=== PATIENT | male | born 1950 | race Caucasian/White ===

== ENCOUNTER 2020-07-01 21:43 | Inpatient (IN) ==
[2020-07-02] MEDS ORDERED: Acetaminophen 325 MG TABLET PO PRN (02:01)
[2020-07-02] MEDS ORDERED: Ondansetron ODT 4 MG TAB.RAPDIS SL PRN (02:01)
[2020-07-02] MEDS ORDERED: Naloxone 0.4 MG/ML INJ IVP PRN (02:01)
[2020-07-02] MEDS ORDERED: Perflutren Lipid Microsphere 1.3 ML in 0.9 % Sodium Chloride 8.7 ML IVP PRN ×2 (02:03→11:47)
[2020-07-02] MEDS ORDERED: Ipratropium/Albuterol Neb 3 ML IH PRN (02:04)
[2020-07-02] MEDS ORDERED: Dextrose Gel 15 GM/37.5 ML TUBE PO PRN ×2 (02:45)
[2020-07-02] MEDS ORDERED: *HR* Dextrose 50 % in Water (Vial) 50 ML VIAL IVP PRN (02:45)
[2020-07-02] MEDS ORDERED: D5% in Water 1,000 ML IVC PRN (02:45)
[2020-07-02] MEDS ORDERED: *HR* Metoprolol 5 MG/5 ML VIAL IVP PRN (02:48)
[2020-07-02] MEDS: *HR* HYDROcodone/Acet 5/325 mg TABLET PO PRN ×4 (03:50→23:12)
[2020-07-02] MEDS: Insulin LISPRO 300 UNITS/3 ML VIAL SUBQ SCH ×6 (03:58→19:45)
[2020-07-02] MEDS: Nicotine 21 MG PATCH.TD24 TD SCH (03:58)
[2020-07-02 05:42] LABS: Bacteria,Urine Few per hpf (None-Few); Bilirubin,Urine Negative (Negative); Blood,Urine Negative (Negative); Clarity,Urine Clear (Clear); Color,Urine Yellow (Yellow); Glucose,Urine (UA) 30 mg/dL (Normal); Hyaline Casts,Urine Few per lpf (None Seen); Ketones,Urine Trace mg/dL (Negative); Leukocyte Esterase,Urine Negative (Negative); Mucus,Urine Few per lpf (None-Few); Nitrite,Urine Negative (Negative); PH,Urine 5.5 pH Units (5.0-8.0); Protein,Urine Trace mg/dL (Neg-Trace); RBC,Urine 0-3 per hpf (0-3); Specific Gravity,Urine 1.023 (1.010-1.025); Urobilinogen,Urine Normal (Normal); WBC,Urine 0-3 per hpf (0-3)
[2020-07-02] MEDS: MethylPREDNISolone 40 MG/ML VIAL IVP SCH ×2 (05:56→17:41)
[2020-07-02 06:10] LABS: Adenovirus Not Detected (Not Detect); Coronavirus 229E Not Detected (Not Detect); Coronavirus HKU1 Not Detected (Not Detect); Coronavirus NL63 Not Detected (Not Detect); Coronavirus OC43 Not Detected (Not Detect); Human Metapneumovirus Not Detected (Not Detect); Human Rhinovirus/Enterovirus Not Detected (Not Detect); Influenza A Subtype 2009 H1 Not Detected (Not Detect); Influenza B Not Detected (Not Detect); Parainfluenza Virus 1 Not Detected (Not Detect); Parainfluenza Virus 2 Not Detected (Not Detect); Parainfluenza Virus 3 Not Detected (Not Detect); Parainfluenza Virus 4 Not Detected (Not Detect)
[2020-07-02 06:11] LABS: Bordetella Pertussis Not Detected (Not Detect); Chlamydophila pneumoniae Not Detected (Not Detect); Mycoplasma pneumoniae Not Detected (Not Detect); Respiratory Syncytial Virus Not Detected (Not Detect)
[2020-07-02] MEDS ORDERED: cefTRIAXone 1,000 MG in 0.9 % Sodium Chloride Mini Bag 100 ML IVPB SCH (09:00)
[2020-07-02] MEDS ORDERED: Apixaban 5 MG TABLET PO SCH (09:00)
[2020-07-02 09:27] LABS: INR 1.7; Prothrombin Time 19.7 Seconds (9.4-12.1)
[2020-07-02 09:32] LABS: Basophils % 0.1 %; Hematocrit 36.6 % (37.5-50.1); Hemoglobin 11.4 g/dL (12.9-16.9); Immature Granulocytes % 0.7 % (0-4); Lymphocytes # 0.8 K/mcL (0.6-4.6); Mean Corpuscular HGB Conc 31.1 g/dL (31.6-35.5); Mean Corpuscular Hemoglobin 25.9 pg (28.0-33.3); Mean Corpuscular Volume 83.2 fL (83.0-100.0); Mean Platelet Volume 9.9 fL (9.4-12.4); Monocytes # 0.2 K/mcL (0.0-1.3); Monocytes % 2.2 %; Neutrophils # 6.2 K/mcL (1.6-8.9); Platelet Count 276 K/mcL (140-400); Red Cell Distribution Width 15.5 % (11.5-14.5); White Blood Count 7.2 K/mcL (4.3-11.1)
[2020-07-02] MEDS: amLODIPine 5 MG TABLET PO SCH (09:39)
[2020-07-02] MEDS: Furosemide 40 MG/4 ML VIAL IVP SCH ×2 (09:39→19:46)
[2020-07-02 09:44] LABS: Alanine Aminotransferase 10 Units/L (7-52); Albumin 3.6 g/dL (3.5-5.7); Albumin/Globulin Ratio 1.2 (1.1-2.2); Alkaline Phosphatase 175 Units/L (34-104); Aspartate Amino Transferase 15 Units/L (13-39); BUN/Creatinine Ratio 19 (6-26); Blood Urea Nitrogen 15 mg/dL (8-23); Calcium 9.4 mg/dL (8.6-10.3); Carbon Dioxide 24 mEq/L (23-29); Chloride 97 mEq/L (98-107); Chol/HDL Ratio 2.3 (0-4.9); Cholesterol 102 mg/dL (< 200); Globulin 3.1 g/dL (2.4-3.5); Glucose 178 mg/dL (70-105); HDL Cholesterol 44 mg/dL (40-59); LDL Cholesterol,Calculated 43 mg/dL (< 100); Magnesium 1.6 mg/dL (1.6-2.6); Osmolality,Calculated 277 (280-300); Phosphorous 4.1 mg/dL (2.7-4.5); Potassium 4.7 mEq/L (3.5-5.1); Sodium 131 mEq/L (136-145); Total Protein 6.7 g/dL (6.4-8.9); Triglycerides 74 mg/dL (< 150); Troponin I < 0.03 ng/mL (< 0.04); eGFR For African Americans > 60 (> 60); eGFR For Non-African Americans > 60 (> 60)
[2020-07-02] MEDS ORDERED: Budesonide/Formoterol 160/4.5 1 PUFF INH IH SCH (10:00)
[2020-07-02] MEDS ORDERED: Isovue-370 500 ML BOTTLE IVP ONE ×2 (10:21→11:40)
[2020-07-02 10:24] LABS: VBG HCO3 26 mEq/L (21-27); VBG PCO2 50 mmHg (41-51); VBG PH 7.32 pH Units (7.32-7.42); VBG PO2 192 mmHg (25-50)
[2020-07-02] MEDS: Azithromycin 500 MG in 0.9 % Sodium Chloride 250 ML IVPB SCH (10:30)
[2020-07-02] MEDS ORDERED: cefTRIAXone 2,000 MG in 0.9 % Sodium Chloride Mini Bag 100 ML IVPB SCH (11:00)
[2020-07-02] MEDS ORDERED: cefTRIAXone 1,000 MG in 0.9 % Sodium Chloride Mini Bag 100 ML IVPB ONE (11:00)
[2020-07-02] MEDS: Ipratropium/Albuterol Neb 3 ML IH SCH ×4 (12:51→22:54)
[2020-07-02 13:14] LABS: Estimated Average Glucose 206 mg/dl; Hemoglobin A1C 8.8 %
[2020-07-02] MEDS ORDERED: Amiodarone Premix 360 MG/200 ML BAG IVC ONE (13:19)
[2020-07-02] MEDS: Fluticasone Propionate Nasal 50 MCG/SPRAY BOTTLE NS SCH (19:45)
[2020-07-02] MEDS: Amiodarone Premix 360 MG/200 ML BAG IVC SCH (19:46)
[2020-07-03] MEDS: Ipratropium/Albuterol Neb 3 ML IH SCH ×6 (03:03→23:13)
[2020-07-03 05:04] LABS: Hematocrit 33.2 % (37.5-50.1); Hemoglobin 10.2 g/dL (12.9-16.9); Immature Granulocytes % 0.5 % (0-4); Lymphocytes # 0.5 K/mcL (0.6-4.6); Lymphocytes % 8.1 %; Mean Corpuscular HGB Conc 30.7 g/dL (31.6-35.5); Mean Corpuscular Hemoglobin 26.8 pg (28.0-33.3); Mean Corpuscular Volume 87.1 fL (83.0-100.0); Mean Platelet Volume 10.7 fL (9.4-12.4); Monocytes # 0.3 K/mcL (0.0-1.3); Monocytes % 4.7 %; Neutrophils # 5.8 K/mcL (1.6-8.9); Platelet Count 235 K/mcL (140-400); Red Blood Count 3.81 M/mcL (4.19-5.50); Red Cell Distribution Width 15.9 % (11.5-14.5); Segmented Neutrophils % 86.7 %; White Blood Count 6.6 K/mcL (4.3-11.1)
[2020-07-03] MEDS: Nicotine 21 MG PATCH.TD24 TD SCH (05:20)
[2020-07-03] MEDS: MethylPREDNISolone 40 MG/ML VIAL IVP SCH (05:20)
[2020-07-03] MEDS: *HR* HYDROcodone/Acet 5/325 mg TABLET PO PRN ×3 (05:20→18:18)
[2020-07-03 05:23] LABS: BUN/Creatinine Ratio 26 (6-26); Blood Urea Nitrogen 27 mg/dL (8-23); Calcium 8.7 mg/dL (8.6-10.3); Carbon Dioxide 27 mEq/L (23-29); Chloride 96 mEq/L (98-107); Glucose 344 mg/dL (70-105); Osmolality,Calculated 287 (280-300); Potassium 5.4 mEq/L (3.5-5.1); Sodium 129 mEq/L (136-145); eGFR For African Americans > 60 (> 60); eGFR For Non-African Americans > 60 (> 60)
[2020-07-03] MEDS: Amiodarone Premix 360 MG/200 ML BAG IVC SCH ×2 (08:01→20:12)
[2020-07-03] MEDS ORDERED: cefTRIAXone 2,000 MG in 0.9 % Sodium Chloride Mini Bag 100 ML IVPB SCH (09:00)
[2020-07-03] MEDS ORDERED: Metoprolol XL (24 HR) Succ 25 MG TAB.ER.24H PO SCH (09:00)
[2020-07-03] MEDS: Insulin LISPRO 300 UNITS/3 ML VIAL SUBQ SCH ×5 (09:20→20:38)
[2020-07-03] MEDS: Insulin DETEMIR 100 UNIT/ML X5UNITS SUBQ SCH (09:20)
[2020-07-03] MEDS: amLODIPine 5 MG TABLET PO SCH (09:21)
[2020-07-03] MEDS: Azithromycin 500 MG in 0.9 % Sodium Chloride 250 ML IVPB SCH (10:17)
[2020-07-03] MEDS: Apixaban 5 MG TABLET PO SCH ×2 (11:41→20:39)
[2020-07-03] MEDS: Aspirin Enteric Coated 81 MG Tablet PO SCH (12:55)
[2020-07-03] MEDS ORDERED: Furosemide 40 MG/4 ML VIAL IVP SCH ×2 (15:00→21:00)
[2020-07-03] MEDS: Fluticasone Propionate Nasal 50 MCG/SPRAY BOTTLE NS SCH (20:39)
[2020-07-04] MEDS ORDERED: Furosemide 40 MG/4 ML VIAL IVP ONE (00:53)
[2020-07-04] MEDS: *HR* HYDROcodone/Acet 5/325 mg TABLET PO PRN ×4 (01:09→20:27)
[2020-07-04] MEDS ORDERED: Furosemide 40 MG/4 ML VIAL IVP SCH ×3 (01:15→21:00)
[2020-07-04] MEDS: Nicotine 21 MG PATCH.TD24 TD SCH (06:12)
[2020-07-04 07:12] LABS: Basophils % 0.1 %; Hematocrit 34.3 % (37.5-50.1); Hemoglobin 10.4 g/dL (12.9-16.9); Immature Granulocytes % 0.8 % (0-4); Lymphocytes # 0.7 K/mcL (0.6-4.6); Lymphocytes % 5.9 %; Mean Corpuscular HGB Conc 30.3 g/dL (31.6-35.5); Mean Corpuscular Hemoglobin 25.9 pg (28.0-33.3); Mean Corpuscular Volume 85.5 fL (83.0-100.0); Mean Platelet Volume 10.4 fL (9.4-12.4); Monocytes # 0.8 K/mcL (0.0-1.3); Monocytes % 6.1 %; Neutrophils # 10.8 K/mcL (1.6-8.9); Platelet Count 259 K/mcL (140-400); Red Blood Count 4.01 M/mcL (4.19-5.50); Red Cell Distribution Width 15.7 % (11.5-14.5); Segmented Neutrophils % 87.1 %
[2020-07-04 07:16] LABS: White Blood Count 12.4 K/mcL (4.3-11.1)
[2020-07-04 07:25] LABS: BUN/Creatinine Ratio 34 (6-26); Blood Urea Nitrogen 47 mg/dL (8-23); Calcium 8.9 mg/dL (8.6-10.3); Carbon Dioxide 27 mEq/L (23-29); Chloride 96 mEq/L (98-107); Glucose 165 mg/dL (70-105); Osmolality,Calculated 286 (280-300); Sodium 130 mEq/L (136-145); eGFR For African Americans > 60 (> 60); eGFR For Non-African Americans 50 (> 60)
[2020-07-04] MEDS: Insulin LISPRO 300 UNITS/3 ML VIAL SUBQ SCH ×4 (07:32→20:29)
[2020-07-04] MEDS: Insulin DETEMIR 100 UNIT/ML X5UNITS SUBQ SCH (07:33)
[2020-07-04] MEDS: Azithromycin 250 MG TABLET PO SCH (07:33)
[2020-07-04] MEDS: predniSONE 20 MG TABLET PO SCH (07:33)
[2020-07-04] MEDS: Aspirin Enteric Coated 81 MG Tablet PO SCH (07:34)
[2020-07-04] MEDS: Apixaban 5 MG TABLET PO SCH ×2 (07:34→20:19)
[2020-07-04] MEDS: Amiodarone Premix 360 MG/200 ML BAG IVC SCH ×2 (07:38→20:20)
[2020-07-04] MEDS ORDERED: Metoprolol XL (24 HR) Succ 25 MG TAB.ER.24H PO SCH (09:00)
[2020-07-04] MEDS: cefTRIAXone 2,000 MG in Water for inj. (sterile) 20 ML IVP SCH (09:25)
[2020-07-04] MEDS: Budesonide/Formoterol 160/4.5 1 PUFF INH IH SCH ×2 (10:37→19:52)
[2020-07-04] MEDS: Metoprolol XL (24 HR) Succ 50 MG TAB.ER.24H PO SCH (20:19)
[2020-07-04] MEDS: Fluticasone Propionate Nasal 50 MCG/SPRAY BOTTLE NS SCH (20:23)
[2020-07-05 02:05] LABS: Hematocrit 34.9 % (37.5-50.1); Hemoglobin 10.2 g/dL (12.9-16.9); Immature Granulocytes % 0.6 % (0-4); Lymphocytes # 0.8 K/mcL (0.6-4.6); Lymphocytes % 7.3 %; Mean Corpuscular HGB Conc 29.2 g/dL (31.6-35.5); Mean Corpuscular Hemoglobin 25.6 pg (28.0-33.3); Mean Corpuscular Volume 87.5 fL (83.0-100.0); Mean Platelet Volume 10.4 fL (9.4-12.4); Monocytes # 0.9 K/mcL (0.0-1.3); Neutrophils # 9.6 K/mcL (1.6-8.9); Platelet Count 241 K/mcL (140-400); Red Blood Count 3.99 M/mcL (4.19-5.50); Red Cell Distribution Width 15.6 % (11.5-14.5); Segmented Neutrophils % 84.1 %; White Blood Count 11.4 K/mcL (4.3-11.1)
[2020-07-05 02:25] LABS: Calcium 8.6 mg/dL (8.6-10.3); Potassium 5.2 mEq/L (3.5-5.1)
[2020-07-05] MEDS: Nicotine 21 MG PATCH.TD24 TD SCH (06:19)
[2020-07-05] MEDS: *HR* HYDROcodone/Acet 5/325 mg TABLET PO PRN ×3 (06:19→23:57)
[2020-07-05] MEDS: Amiodarone Premix 360 MG/200 ML BAG IVC SCH ×2 (07:24→19:31)
[2020-07-05] MEDS: Tiotropium 10 INH DOSE IH SCH (07:47)
[2020-07-05] MEDS: Budesonide/Formoterol 160/4.5 1 PUFF INH IH SCH ×2 (07:47→20:01)
[2020-07-05] MEDS: Azithromycin 250 MG TABLET PO SCH (08:31)
[2020-07-05] MEDS: Metoprolol XL (24 HR) Succ 50 MG TAB.ER.24H PO SCH ×2 (08:31→19:33)
[2020-07-05] MEDS: predniSONE 20 MG TABLET PO SCH (08:31)
[2020-07-05] MEDS: Aspirin Enteric Coated 81 MG Tablet PO SCH (08:31)
[2020-07-05] MEDS: Apixaban 5 MG TABLET PO SCH ×2 (08:31→19:32)
[2020-07-05] MEDS: cefTRIAXone 2,000 MG in Water for inj. (sterile) 20 ML IVP SCH (08:32)
[2020-07-05] MEDS: Insulin LISPRO 300 UNITS/3 ML VIAL SUBQ SCH ×4 (08:32→19:46)
[2020-07-05] MEDS: Insulin DETEMIR 100 UNIT/ML X5UNITS SUBQ SCH (08:33)
[2020-07-05] MEDS ORDERED: Levalbuterol Neb 0.63 MG/3 ML IH PRN (12:28)
[2020-07-05] MEDS: MethylPREDNISolone 40 MG/ML VIAL IVP SCH (17:11)
[2020-07-05] MEDS: Fluticasone Propionate Nasal 50 MCG/SPRAY BOTTLE NS SCH (19:46)
[2020-07-06 01:47] LABS: Hematocrit 34.5 % (37.5-50.1); Hemoglobin 10.4 g/dL (12.9-16.9); Immature Granulocytes % 0.8 % (0-4); Lymphocytes # 0.4 K/mcL (0.6-4.6); Lymphocytes % 5.1 %; Mean Corpuscular HGB Conc 30.1 g/dL (31.6-35.5); Mean Corpuscular Volume 86.3 fL (83.0-100.0); Mean Platelet Volume 10.6 fL (9.4-12.4); Monocytes # 0.3 K/mcL (0.0-1.3); Monocytes % 3.3 %; Neutrophils # 7.1 K/mcL (1.6-8.9); Platelet Count 226 K/mcL (140-400); Red Cell Distribution Width 15.6 % (11.5-14.5); Segmented Neutrophils % 90.8 %; White Blood Count 7.8 K/mcL (4.3-11.1)
[2020-07-06 02:07] LABS: BUN/Creatinine Ratio 45 (6-26); Blood Urea Nitrogen 57 mg/dL (8-23); Calcium 8.7 mg/dL (8.6-10.3); Carbon Dioxide 29 mEq/L (23-29); Chloride 97 mEq/L (98-107); Glucose 299 mg/dL (70-105); Osmolality,Calculated 299 (280-300); Sodium 131 mEq/L (136-145); eGFR For African Americans > 60 (> 60); eGFR For Non-African Americans 57 (> 60)
[2020-07-06] MEDS: *HR* HYDROcodone/Acet 5/325 mg TABLET PO PRN ×2 (06:15→20:35)
[2020-07-06] MEDS: MethylPREDNISolone 40 MG/ML VIAL IVP SCH ×3 (06:15→16:54)
[2020-07-06] MEDS: Amiodarone Premix 360 MG/200 ML BAG IVC SCH ×2 (07:40→20:18)
[2020-07-06] MEDS: Insulin DETEMIR 100 UNIT/ML X5UNITS SUBQ SCH ×2 (08:27→20:36)
[2020-07-06] MEDS: Insulin LISPRO 300 UNITS/3 ML VIAL SUBQ SCH ×4 (08:27→20:38)
[2020-07-06] MEDS: Nicotine 21 MG PATCH.TD24 TD SCH (08:29)
[2020-07-06] MEDS: Apixaban 5 MG TABLET PO SCH ×2 (08:31→20:33)
[2020-07-06] MEDS: Metoprolol XL (24 HR) Succ 50 MG TAB.ER.24H PO SCH ×2 (08:31→20:34)
[2020-07-06] MEDS: cefTRIAXone 2,000 MG in Water for inj. (sterile) 20 ML IVP SCH (08:31)
[2020-07-06] MEDS: Azithromycin 250 MG TABLET PO SCH (08:31)
[2020-07-06] MEDS: Aspirin Enteric Coated 81 MG Tablet PO SCH (08:31)
[2020-07-06] MEDS ORDERED: Furosemide 40 MG/4 ML VIAL IVP SCH (09:00)
[2020-07-06] MEDS: Tiotropium 10 INH DOSE IH SCH (09:41)
[2020-07-06] MEDS: Budesonide/Formoterol 160/4.5 1 PUFF INH IH SCH ×2 (09:41→20:13)
[2020-07-06] MEDS: Levalbuterol Neb 0.63 MG/3 ML IH SCH ×4 (11:45→23:46)
[2020-07-06] MEDS: Vancomycin 1,500 MG/265 ML IV.SOLN IVPB SCH (15:22)
[2020-07-06] MEDS: Piperacillin/Tazobactam 3.375 GM in 0.9 % Sodium Chloride Mini Bag 100 ML IVPB SCH ×2 (15:26→16:50)
[2020-07-06] MEDS: Furosemide 40 MG/4 ML VIAL IVP SCH (20:29)
[2020-07-07] MEDS: Piperacillin/Tazobactam 3.375 GM in 0.9 % Sodium Chloride Mini Bag 100 ML IVPB SCH ×4 (00:07→23:53)
[2020-07-07] MEDS: MethylPREDNISolone 40 MG/ML VIAL IVP SCH ×5 (00:07→23:53)
[2020-07-07] MEDS: Fluticasone Propionate Nasal 50 MCG/SPRAY BOTTLE NS SCH ×2 (00:08→20:34)
[2020-07-07] MEDS: *HR* HYDROcodone/Acet 5/325 mg TABLET PO PRN ×4 (02:36→23:53)
[2020-07-07] MEDS: Vancomycin 1,500 MG/265 ML IV.SOLN IVPB SCH ×2 (02:36→15:37)
[2020-07-07] MEDS: Levalbuterol Neb 0.63 MG/3 ML IH SCH ×6 (04:13→23:49)
[2020-07-07 04:49] LABS: Hematocrit 33.7 % (37.5-50.1); Hemoglobin 10.4 g/dL (12.9-16.9); Immature Granulocytes % 0.5 % (0-4); Lymphocytes # 0.4 K/mcL (0.6-4.6); Lymphocytes % 5.4 %; Mean Corpuscular HGB Conc 30.9 g/dL (31.6-35.5); Mean Corpuscular Hemoglobin 26.7 pg (28.0-33.3); Mean Corpuscular Volume 86.4 fL (83.0-100.0); Mean Platelet Volume 10.8 fL (9.4-12.4); Monocytes # 0.3 K/mcL (0.0-1.3); Monocytes % 3.7 %; Neutrophils # 7.4 K/mcL (1.6-8.9); Platelet Count 223 K/mcL (140-400); Red Cell Distribution Width 15.6 % (11.5-14.5); Segmented Neutrophils % 90.4 %; White Blood Count 8.2 K/mcL (4.3-11.1)
[2020-07-07 05:02] LABS: BUN/Creatinine Ratio 46 (6-26); Blood Urea Nitrogen 51 mg/dL (8-23); Calcium 8.8 mg/dL (8.6-10.3); Carbon Dioxide 27 mEq/L (23-29); Chloride 100 mEq/L (98-107); Glucose 242 mg/dL (70-105); Osmolality,Calculated 298 (280-300); Potassium 4.3 mEq/L (3.5-5.1); Sodium 133 mEq/L (136-145); eGFR For African Americans > 60 (> 60); eGFR For Non-African Americans > 60 (> 60)
[2020-07-07] MEDS: Tiotropium 10 INH DOSE IH SCH (07:42)
[2020-07-07] MEDS: Budesonide/Formoterol 160/4.5 1 PUFF INH IH SCH ×2 (07:43→20:08)
[2020-07-07] MEDS: Amiodarone Premix 360 MG/200 ML BAG IVC SCH ×2 (07:50→18:24)
[2020-07-07] MEDS: Nicotine 21 MG PATCH.TD24 TD SCH (08:16)
[2020-07-07] MEDS: Aspirin Enteric Coated 81 MG Tablet PO SCH (08:17)
[2020-07-07] MEDS: Metoprolol XL (24 HR) Succ 50 MG TAB.ER.24H PO SCH ×2 (08:17→20:33)
[2020-07-07] MEDS: Furosemide 40 MG/4 ML VIAL IVP SCH ×2 (08:17→20:33)
[2020-07-07] MEDS: Apixaban 5 MG TABLET PO SCH ×2 (08:17→20:33)
[2020-07-07] MEDS: Insulin LISPRO 300 UNITS/3 ML VIAL SUBQ SCH ×4 (08:20→20:33)
[2020-07-07] MEDS: Insulin DETEMIR 100 UNIT/ML X5UNITS SUBQ SCH ×2 (09:35→20:34)
[2020-07-08] MEDS ORDERED: Insulin LISPRO 300 UNITS/3 ML VIAL SUBQ ONE (00:28)
[2020-07-08 01:57] LABS: Basophils % 0.1 %; Hematocrit 30.6 % (37.5-50.1); Hemoglobin 9.5 g/dL (12.9-16.9); Immature Granulocytes % 0.7 % (0-4); Lymphocytes # 0.4 K/mcL (0.6-4.6); Lymphocytes % 4.1 %; Mean Corpuscular Hemoglobin 25.9 pg (28.0-33.3); Mean Corpuscular Volume 83.4 fL (83.0-100.0); Mean Platelet Volume 10.5 fL (9.4-12.4); Monocytes # 0.6 K/mcL (0.0-1.3); Monocytes % 6.4 %; Neutrophils # 7.9 K/mcL (1.6-8.9); Platelet Count 211 K/mcL (140-400); Red Blood Count 3.67 M/mcL (4.19-5.50); Red Cell Distribution Width 15.5 % (11.5-14.5); Segmented Neutrophils % 88.7 %; White Blood Count 8.9 K/mcL (4.3-11.1)
[2020-07-08 02:05] LABS: BUN/Creatinine Ratio 44 (6-26); Blood Urea Nitrogen 51 mg/dL (8-23); Calcium 8.9 mg/dL (8.6-10.3); Carbon Dioxide 27 mEq/L (23-29); Chloride 100 mEq/L (98-107); Glucose 381 mg/dL (70-105); Osmolality,Calculated 309 (280-300); Potassium 4.2 mEq/L (3.5-5.1); Sodium 135 mEq/L (136-145); eGFR For African Americans > 60 (> 60); eGFR For Non-African Americans > 60 (> 60)
[2020-07-08] MEDS: Vancomycin 1,500 MG/265 ML IV.SOLN IVPB SCH (02:32)
[2020-07-08] MEDS: Levalbuterol Neb 0.63 MG/3 ML IH SCH ×5 (04:08→19:58)
[2020-07-08] MEDS: *HR* HYDROcodone/Acet 5/325 mg TABLET PO PRN ×3 (05:55→20:15)
[2020-07-08] MEDS: MethylPREDNISolone 40 MG/ML VIAL IVP SCH ×3 (05:55→17:09)
[2020-07-08] MEDS: Amiodarone Premix 360 MG/200 ML BAG IVC SCH (05:56)
[2020-07-08] MEDS: Budesonide/Formoterol 160/4.5 1 PUFF INH IH SCH ×2 (07:48→19:58)
[2020-07-08] MEDS: Tiotropium 10 INH DOSE IH SCH (07:49)
[2020-07-08] MEDS: Aspirin Enteric Coated 81 MG Tablet PO SCH (08:16)
[2020-07-08] MEDS: Metoprolol XL (24 HR) Succ 50 MG TAB.ER.24H PO SCH ×2 (08:16→19:43)
[2020-07-08] MEDS: Nicotine 21 MG PATCH.TD24 TD SCH (08:17)
[2020-07-08] MEDS: Apixaban 5 MG TABLET PO SCH (08:17)
[2020-07-08] MEDS: Insulin LISPRO 300 UNITS/3 ML VIAL SUBQ SCH ×6 (08:17→19:45)
[2020-07-08] MEDS: Insulin DETEMIR 100 UNIT/ML X5UNITS SUBQ SCH ×2 (08:17→19:44)
[2020-07-08] MEDS: Furosemide 40 MG/4 ML VIAL IVP SCH ×2 (08:18→19:43)
[2020-07-08] MEDS: Piperacillin/Tazobactam 3.375 GM in 0.9 % Sodium Chloride Mini Bag 100 ML IVPB SCH ×2 (08:18→17:09)
[2020-07-08] MEDS ORDERED: Metoprolol XL (24 HR) Succ 50 MG TAB.ER.24H PO ONE (11:26)
[2020-07-08] MEDS: *HR* Amiodarone 200 MG TABLET PO SCH (12:13)
[2020-07-08 14:53] LABS: Hematocrit 33.4 % (37.5-50.1); Hemoglobin 10.4 g/dL (12.9-16.9); Mean Corpuscular HGB Conc 31.1 g/dL (31.6-35.5); Mean Corpuscular Hemoglobin 26.5 pg (28.0-33.3); Mean Platelet Volume 10.9 fL (9.4-12.4); Platelet Count 249 K/mcL (140-400); Red Blood Count 3.93 M/mcL (4.19-5.50); Red Cell Distribution Width 15.7 % (11.5-14.5); White Blood Count 12.9 K/mcL (4.3-11.1)
[2020-07-08] MEDS ORDERED: Permethrin Cream Rinse 60 ML LIQUID TP ONE (15:12)
[2020-07-08 15:13] LABS: Prothrombin Time 23.2 Seconds (9.4-12.1)
[2020-07-08 15:21] LABS: Heparin anti-factor XA UFH > 2.00 IU/mL (0.30-0.70)
[2020-07-08] MEDS ORDERED: *HR* Heparin 5,000 UNIT/ML VIAL IVP ONE ×2 (18:00)
[2020-07-08] MEDS ORDERED: *HR* Heparin 5,000 UNIT/ML VIAL IVP PRN ×4 (18:00)
[2020-07-08] MEDS ORDERED: Heparin 25,000UNIT/250ML 1/2NS 25,000 UNIT/250 ML IV.SOLN IVC SCH ×2 (18:00)
[2020-07-08] MEDS: Fluticasone Propionate Nasal 50 MCG/SPRAY BOTTLE NS SCH (19:49)
[2020-07-09] MEDS: MethylPREDNISolone 40 MG/ML VIAL IVP SCH ×5 (00:13→23:46)
[2020-07-09] MEDS: Piperacillin/Tazobactam 3.375 GM in 0.9 % Sodium Chloride Mini Bag 100 ML IVPB SCH ×4 (00:13→23:46)
[2020-07-09] MEDS: Levalbuterol Neb 0.63 MG/3 ML IH SCH ×7 (00:16→23:19)
[2020-07-09 01:33] LABS: Basophils % 0.2 %; Hematocrit 34.3 % (37.5-50.1); Hemoglobin 10.4 g/dL (12.9-16.9); Immature Granulocytes % 0.5 % (0-4); Lymphocytes # 0.7 K/mcL (0.6-4.6); Lymphocytes % 5.4 %; Mean Corpuscular HGB Conc 30.3 g/dL (31.6-35.5); Mean Corpuscular Hemoglobin 25.7 pg (28.0-33.3); Mean Corpuscular Volume 84.7 fL (83.0-100.0); Mean Platelet Volume 10.6 fL (9.4-12.4); Monocytes # 0.8 K/mcL (0.0-1.3); Neutrophils # 11.6 K/mcL (1.6-8.9); Platelet Count 275 K/mcL (140-400); Red Blood Count 4.05 M/mcL (4.19-5.50); Red Cell Distribution Width 15.7 % (11.5-14.5); Segmented Neutrophils % 87.9 %; White Blood Count 13.1 K/mcL (4.3-11.1)
[2020-07-09 01:53] LABS: BUN/Creatinine Ratio 46 (6-26); Blood Urea Nitrogen 46 mg/dL (8-23); Calcium 9.1 mg/dL (8.6-10.3); Carbon Dioxide 30 mEq/L (23-29); Chloride 101 mEq/L (98-107); Glucose 76 mg/dL (70-105); Magnesium 1.8 mg/dL (1.6-2.6); Osmolality,Calculated 303 (280-300); Potassium 3.6 mEq/L (3.5-5.1); Sodium 141 mEq/L (136-145); eGFR For African Americans > 60 (> 60); eGFR For Non-African Americans > 60 (> 60)
[2020-07-09] MEDS: *HR* HYDROcodone/Acet 5/325 mg TABLET PO PRN (03:11)
[2020-07-09] MEDS: *HR* LORazepam 0.5 MG TABLET PO PRN (03:37)
[2020-07-09] MEDS: Insulin LISPRO 300 UNITS/3 ML VIAL SUBQ SCH ×7 (07:39→21:04)
[2020-07-09] MEDS: Budesonide/Formoterol 160/4.5 1 PUFF INH IH SCH ×2 (07:46→23:19)
[2020-07-09] MEDS: Tiotropium 10 INH DOSE IH SCH (07:47)
[2020-07-09] MEDS: Furosemide 40 MG/4 ML VIAL IVP SCH ×2 (07:49→21:08)
[2020-07-09] MEDS: Aspirin Enteric Coated 81 MG Tablet PO SCH (07:49)
[2020-07-09] MEDS: Nicotine 21 MG PATCH.TD24 TD SCH (07:49)
[2020-07-09] MEDS: Metoprolol XL (24 HR) Succ 50 MG TAB.ER.24H PO SCH ×2 (07:49→21:09)
[2020-07-09] MEDS: *HR* Amiodarone 200 MG TABLET PO SCH (07:50)
[2020-07-09] MEDS: Insulin DETEMIR 100 UNIT/ML X5UNITS SUBQ SCH ×2 (08:13→21:04)
[2020-07-09] MEDS ORDERED: Furosemide 40 MG/4 ML VIAL IVP ONE (08:36)
[2020-07-09 08:54] LABS: ABG Base Excess 5 mEq/L (-2 to 3); ABG HCO3 32 mEq/L (21-27); ABG Oxygen Saturation 98 % (95-98); ABG PCO2 61 mmHg (35-45); ABG PH 7.33 pH Units (7.32-7.45); ABG PO2 114 mmHg (85-104); ABG TCO2 34 mEq/L (20-26); Blood Gas Pressure Support 14 cm H2O
[2020-07-09] MEDS ORDERED: lisinopriL 5 MG TABLET PO SCH (09:00)
[2020-07-09] MEDS ORDERED: *HR* Rocuronium Bromide 50 MG/5 ML VIAL IVP ONE (11:36)
[2020-07-09] MEDS: *HR* LORazepam 2 MG/ML VIAL IVP PRN (12:34)
[2020-07-09] MEDS ORDERED: Artificial Tears SOLN 15 ML BOTTLE BOTH EYES PRN (15:32)
[2020-07-09] MEDS ORDERED: *HR* Succinylcholine 200 MG/10 ML VIAL IVP ONE (15:43)
[2020-07-09] MEDS ORDERED: *HR* Etomidate 40 MG/20 ML VIAL IVP ONE (15:43)
[2020-07-09] MEDS ORDERED: *HR* Propofol 200 MG/20 ML VIAL IVP ONE (15:43)
[2020-07-09 15:53] LABS: Influenza A PCR Negative (Negative); Influenza B PCR Negative (Negative); Resp. Syncytial Virus PCR Negative (Negative)
[2020-07-09 15:54] LABS: SARS-CoV-2 by PCR (In House) Negative (Negative)
[2020-07-09] MEDS ORDERED: D5% in Water 250 ML ONE (16:02)
[2020-07-09] MEDS ORDERED: *HR* Norepinephrine 4 MG/4 ML VIAL IVC ONE (16:02)
[2020-07-09] MEDS: FentaNYL (PF) 1,000 MCG/100 ML IV.SOLN IVC SCH (16:03)
[2020-07-09] MEDS ORDERED: 0.9 % Sodium Chloride 500 ML ONE (16:13)
[2020-07-09] MEDS: Norepinephrine 4 MG/254 ML IV.SOLN IVC SCH (16:15)
[2020-07-09 17:02] LABS: ABG Base Excess 6 mEq/L (-2 to 3); ABG HCO3 32 mEq/L (21-27); ABG Oxygen Saturation 100 % (95-98); ABG PCO2 52 mmHg (35-45); ABG PH 7.39 pH Units (7.32-7.45); ABG PO2 267 mmHg (85-104); ABG TCO2 33 mEq/L (20-26); Blood Gas Modality ASSIST CONTROL; Blood Gas VT 450 cc
[2020-07-09] MEDS: Artificial Tears SOLN 15 ML BOTTLE BOTH EYES SCH ×3 (17:22→23:46)
[2020-07-09] MEDS: Vancomycin 1,500 MG/265 ML IV.SOLN IVPB SCH (18:26)
[2020-07-09] MEDS ORDERED: Permethrin Cream Rinse 60 ML LIQUID TP ONE (18:43)
[2020-07-09] MEDS: Chlorhexidine Rinse 15 ML MOUTHWASH MM SCH (21:06)
[2020-07-09] MEDS: Fluticasone Propionate Nasal 50 MCG/SPRAY BOTTLE NS SCH (21:08)
[2020-07-10] MEDS: FentaNYL (PF) 1,000 MCG/100 ML IV.SOLN IVC SCH ×3 (00:50→17:44)
[2020-07-10] MEDS: Norepinephrine 4 MG/254 ML IV.SOLN IVC SCH (02:35)
[2020-07-10] MEDS: Levalbuterol Neb 0.63 MG/3 ML IH SCH ×6 (03:20→23:38)
[2020-07-10] MEDS: Artificial Tears SOLN 15 ML BOTTLE BOTH EYES SCH ×5 (03:43→21:58)
[2020-07-10 04:04] LABS: Hematocrit 26.5 % (37.5-50.1); Immature Granulocytes % 0.7 % (0-4); Lymphocytes # 0.6 K/mcL (0.6-4.6); Lymphocytes % 6.7 %; Mean Corpuscular HGB Conc 30.6 g/dL (31.6-35.5); Mean Corpuscular Hemoglobin 25.8 pg (28.0-33.3); Mean Corpuscular Volume 84.4 fL (83.0-100.0); Mean Platelet Volume 10.9 fL (9.4-12.4); Monocytes # 0.8 K/mcL (0.0-1.3); Platelet Count 219 K/mcL (140-400); Red Blood Count 3.14 M/mcL (4.19-5.50); Red Cell Distribution Width 15.9 % (11.5-14.5); Segmented Neutrophils % 84.6 %; White Blood Count 9.5 K/mcL (4.3-11.1)
[2020-07-10 04:09] LABS: Hemoglobin 8.1 g/dL (12.9-16.9)
[2020-07-10 04:20] LABS: Albumin 2.8 g/dL (3.5-5.7); Albumin/Globulin Ratio 1.4 (1.1-2.2); BUN/Creatinine Ratio 45 (6-26); Bilirubin,Direct 0.7 mg/dL (0.0-0.2); Bilirubin,Indirect 0.5 mg/dL (0.0-1.0); Bilirubin,Total 1.2 mg/dL (0.3-1.0); Blood Urea Nitrogen 41 mg/dL (8-23); Calcium 8.3 mg/dL (8.6-10.3); Carbon Dioxide 30 mEq/L (23-29); Chloride 104 mEq/L (98-107); Glucose 160 mg/dL (70-105); Magnesium 1.7 mg/dL (1.6-2.6); Osmolality,Calculated 312 (280-300); Potassium 3.3 mEq/L (3.5-5.1); Sodium 144 mEq/L (136-145); Total Protein 4.8 g/dL (6.4-8.9); eGFR For African Americans > 60 (> 60); eGFR For Non-African Americans > 60 (> 60)
[2020-07-10 04:41] LABS: ABG Base Excess 7 mEq/L (-2 to 3); ABG HCO3 32 mEq/L (21-27); ABG Oxygen Saturation 89 % (95-98); ABG PCO2 49 mmHg (35-45); ABG PH 7.42 pH Units (7.32-7.45); ABG PO2 57 mmHg (85-104); ABG TCO2 33 mEq/L (20-26); Blood Gas Modality ASSIST CONTROL; Blood Gas VT 400 cc
[2020-07-10] MEDS: MethylPREDNISolone 40 MG/ML VIAL IVP SCH ×2 (05:14→17:50)
[2020-07-10] MEDS ORDERED: Potassium Chloride Elixir 20 MEQ/15 ML UDC PO ONE (07:00)
[2020-07-10] MEDS: Tiotropium 10 INH DOSE IH SCH (07:18)
[2020-07-10] MEDS: Budesonide/Formoterol 160/4.5 1 PUFF INH IH SCH ×2 (07:19→19:48)
[2020-07-10] MEDS: Metoprolol XL (24 HR) Succ 50 MG TAB.ER.24H PO SCH ×2 (07:34→21:59)
[2020-07-10] MEDS: Aspirin Enteric Coated 81 MG Tablet PO SCH (07:37)
[2020-07-10] MEDS: *HR* Amiodarone 200 MG TABLET PO SCH (07:37)
[2020-07-10] MEDS: Furosemide 40 MG/4 ML VIAL IVP SCH ×2 (07:37→21:54)
[2020-07-10] MEDS: Pantoprazole 40 MG VIAL IVP SCH (07:38)
[2020-07-10] MEDS: Piperacillin/Tazobactam 3.375 GM in 0.9 % Sodium Chloride Mini Bag 100 ML IVPB SCH ×2 (07:38→16:09)
[2020-07-10] MEDS: Chlorhexidine Rinse 15 ML MOUTHWASH MM SCH ×2 (07:38→21:54)
[2020-07-10] MEDS: Insulin LISPRO 300 UNITS/3 ML VIAL SUBQ SCH ×4 (07:39→17:53)
[2020-07-10] MEDS: Insulin DETEMIR 100 UNIT/ML X5UNITS SUBQ SCH ×2 (07:50→22:51)
[2020-07-10] MEDS: Nicotine 21 MG PATCH.TD24 TD SCH (08:11)
[2020-07-10] MEDS ORDERED: Insulin LISPRO 300 UNITS/3 ML VIAL SUBQ SCH (12:00)
[2020-07-10] MEDS: *HR* Heparin 5,000 UNIT/ML VIAL SQ SCH (17:49)
[2020-07-10] MEDS: Fluticasone Propionate Nasal 50 MCG/SPRAY BOTTLE NS SCH (21:58)
[2020-07-11] MEDS: FentaNYL (PF) 1,000 MCG/100 ML IV.SOLN IVC SCH ×3 (01:20→18:45)
[2020-07-11] MEDS: Norepinephrine 4 MG/254 ML IV.SOLN IVC SCH ×2 (01:24→02:17)
[2020-07-11] MEDS: Artificial Tears SOLN 15 ML BOTTLE BOTH EYES SCH ×7 (02:17→23:06)
[2020-07-11] MEDS: Piperacillin/Tazobactam 3.375 GM in 0.9 % Sodium Chloride Mini Bag 100 ML IVPB SCH ×4 (02:17→23:10)
[2020-07-11] MEDS: Insulin LISPRO 300 UNITS/3 ML VIAL SUBQ SCH ×5 (02:18→23:06)
[2020-07-11] MEDS: Levalbuterol Neb 0.63 MG/3 ML IH SCH ×6 (03:41→23:33)
[2020-07-11 04:53] LABS: ABG Base Excess 8 mEq/L (-2 to 3); ABG HCO3 34 mEq/L (21-27); ABG Oxygen Saturation 93 % (95-98); ABG PCO2 61 mmHg (35-45); ABG PH 7.36 pH Units (7.32-7.45); ABG PO2 72 mmHg (85-104); ABG TCO2 36 mEq/L (20-26); Blood Gas Modality ASSIST CONTROL; Blood Gas VT 400 cc
[2020-07-11 05:04] LABS: Basophils % 0.1 %; Hematocrit 28.5 % (37.5-50.1); Hemoglobin 8.6 g/dL (12.9-16.9); Immature Granulocytes % 1.5 % (0-4); Lymphocytes # 0.4 K/mcL (0.6-4.6); Lymphocytes % 2.6 %; Mean Corpuscular HGB Conc 30.2 g/dL (31.6-35.5); Mean Corpuscular Hemoglobin 25.8 pg (28.0-33.3); Mean Corpuscular Volume 85.6 fL (83.0-100.0); Mean Platelet Volume 10.9 fL (9.4-12.4); Monocytes # 1.2 K/mcL (0.0-1.3); Monocytes % 8.1 %; Neutrophils # 12.6 K/mcL (1.6-8.9); Nucleated Red Blood Cells 0.2 /100 WBC (0); Platelet Count 236 K/mcL (140-400); Red Blood Count 3.33 M/mcL (4.19-5.50); Red Cell Distribution Width 16.1 % (11.5-14.5); Segmented Neutrophils % 87.7 %
[2020-07-11 05:05] LABS: White Blood Count 14.4 K/mcL (4.3-11.1)
[2020-07-11 05:07] LABS: VBG Ionized Calcium 1.17 mmol/L (1.15-1.35)
[2020-07-11 05:23] LABS: BUN/Creatinine Ratio 55 (6-26); Blood Urea Nitrogen 48 mg/dL (8-23); Calcium 8.5 mg/dL (8.6-10.3); Carbon Dioxide 32 mEq/L (23-29); Chloride 106 mEq/L (98-107); Glucose 303 mg/dL (70-105); Magnesium 2.3 mg/dL (1.6-2.6); Osmolality,Calculated 324 (280-300); Phosphorous 4.2 mg/dL (2.7-4.5); Potassium 3.7 mEq/L (3.5-5.1); Sodium 145 mEq/L (136-145); eGFR For African Americans > 60 (> 60); eGFR For Non-African Americans > 60 (> 60)
[2020-07-11] MEDS: *HR* Heparin 5,000 UNIT/ML VIAL SQ SCH ×2 (05:23→17:20)
[2020-07-11] MEDS: MethylPREDNISolone 40 MG/ML VIAL IVP SCH ×2 (05:24→17:19)
[2020-07-11] MEDS: Budesonide/Formoterol 160/4.5 1 PUFF INH IH SCH ×2 (07:30→20:05)
[2020-07-11] MEDS: Furosemide 40 MG/4 ML VIAL IVP SCH ×2 (08:05→20:34)
[2020-07-11] MEDS: *HR* Amiodarone 200 MG TABLET PO SCH (08:06)
[2020-07-11] MEDS: Nicotine 21 MG PATCH.TD24 TD SCH (08:06)
[2020-07-11] MEDS: Pantoprazole 40 MG VIAL IVP SCH (08:06)
[2020-07-11] MEDS: Chlorhexidine Rinse 15 ML MOUTHWASH MM SCH ×2 (08:07→20:34)
[2020-07-11] MEDS: Aspirin Enteric Coated 81 MG Tablet PO SCH (08:07)
[2020-07-11] MEDS: Insulin DETEMIR 100 UNIT/ML X5UNITS SUBQ SCH ×2 (08:08→21:00)
[2020-07-11] MEDS: Metoprolol XL (24 HR) Succ 50 MG TAB.ER.24H PO SCH (08:08)
[2020-07-11] MEDS: Aspirin 81 MG TAB.CHEW GTUBE SCH (11:26)
[2020-07-11] MEDS: *HR* Metoprolol 5 MG/5 ML VIAL IVP SCH ×2 (18:56→23:10)
[2020-07-11] MEDS: Fluticasone Propionate Nasal 50 MCG/SPRAY BOTTLE NS SCH (20:46)
[2020-07-12] MEDS: Levalbuterol Neb 0.63 MG/3 ML IH SCH ×6 (03:16→23:35)
[2020-07-12] MEDS: FentaNYL (PF) 1,000 MCG/100 ML IV.SOLN IVC SCH (03:28)
[2020-07-12] MEDS: Artificial Tears SOLN 15 ML BOTTLE BOTH EYES SCH ×5 (03:29→21:00)
[2020-07-12 03:36] LABS: ABG Base Excess 11 mEq/L (-2 to 3); ABG HCO3 38 mEq/L (21-27); ABG Oxygen Saturation 94 % (95-98); ABG PCO2 67 mmHg (35-45); ABG PH 7.36 pH Units (7.32-7.45); ABG PO2 75 mmHg (85-104); ABG TCO2 40 mEq/L (20-26); Blood Gas Modality ASSIST CONTROL; Blood Gas VT 400 cc
[2020-07-12 03:41] LABS: Basophils % 0.1 %; Hematocrit 27.3 % (37.5-50.1); Hemoglobin 8.1 g/dL (12.9-16.9); Immature Granulocytes % 1.4 % (0-4); Lymphocytes # 0.3 K/mcL (0.6-4.6); Lymphocytes % 2.3 %; Mean Corpuscular HGB Conc 29.7 g/dL (31.6-35.5); Mean Corpuscular Hemoglobin 26.1 pg (28.0-33.3); Mean Corpuscular Volume 88.1 fL (83.0-100.0); Mean Platelet Volume 10.8 fL (9.4-12.4); Monocytes # 1.2 K/mcL (0.0-1.3); Neutrophils # 13.2 K/mcL (1.6-8.9); Nucleated Red Blood Cells 0.1 /100 WBC (0); Platelet Count 203 K/mcL (140-400); Segmented Neutrophils % 88.2 %
[2020-07-12 04:00] LABS: BUN/Creatinine Ratio 64 (6-26); Blood Urea Nitrogen 58 mg/dL (8-23); Calcium 8.4 mg/dL (8.6-10.3); Carbon Dioxide 34 mEq/L (23-29); Chloride 110 mEq/L (98-107); Glucose 232 mg/dL (70-105); Osmolality,Calculated 336 (280-300); Potassium 3.6 mEq/L (3.5-5.1); Sodium 151 mEq/L (136-145); eGFR For African Americans > 60 (> 60); eGFR For Non-African Americans > 60 (> 60)
[2020-07-12] MEDS: Dexmedetomidine HCl 400 MCG/100 ML MLS IVC SCH ×4 (04:14→22:00)
[2020-07-12] MEDS: *HR* Metoprolol 5 MG/5 ML VIAL IVP SCH ×3 (04:30→17:24)
[2020-07-12] MEDS: *HR* LORazepam 2 MG/ML VIAL IVP PRN (05:24)
[2020-07-12] MEDS: *HR* Heparin 5,000 UNIT/ML VIAL SQ SCH (05:24)
[2020-07-12] MEDS: MethylPREDNISolone 40 MG/ML VIAL IVP SCH ×2 (05:26→17:23)
[2020-07-12] MEDS: Insulin LISPRO 300 UNITS/3 ML VIAL SUBQ SCH ×3 (05:28→17:27)
[2020-07-12 07:31] LABS: ANA IgG by ELISA NONE DETECTED (None Detected)
[2020-07-12 07:41] LABS: Serine Protease-3 Antibody 3 AU/mL (0-19)
[2020-07-12] MEDS: Budesonide/Formoterol 160/4.5 1 PUFF INH IH SCH ×2 (07:42→19:49)
[2020-07-12] MEDS: Pantoprazole 40 MG VIAL IVP SCH (08:06)
[2020-07-12] MEDS: Piperacillin/Tazobactam 3.375 GM in 0.9 % Sodium Chloride Mini Bag 100 ML IVPB SCH ×2 (08:06→16:22)
[2020-07-12] MEDS: Nicotine 21 MG PATCH.TD24 TD SCH (08:07)
[2020-07-12] MEDS: Chlorhexidine Rinse 15 ML MOUTHWASH MM SCH ×2 (08:07→21:00)
[2020-07-12] MEDS: *HR* Amiodarone 200 MG TABLET PO SCH (08:12)
[2020-07-12] MEDS: Insulin DETEMIR 100 UNIT/ML X5UNITS SUBQ SCH (08:13)
[2020-07-12] MEDS: Aspirin 81 MG TAB.CHEW GTUBE SCH (08:13)
[2020-07-12] MEDS: Furosemide 40 MG/4 ML VIAL IVP SCH ×2 (09:12→21:00)
[2020-07-12] MEDS ORDERED: Heparin 25,000UNIT/250ML 1/2NS 25,000 UNIT/250 ML IV.SOLN IVC SCH (12:15)
[2020-07-12] MEDS ORDERED: *HR* Heparin 5,000 UNIT/ML VIAL IVP PRN ×2 (12:15)
[2020-07-12] MEDS ORDERED: *HR* Digoxin 0.5 MG/2 ML AMPUL IVP ONE (12:54)
[2020-07-12] MEDS: Heparin 25,000UNIT/250ML 1/2NS 25,000 UNIT/250 ML IV.SOLN IVC SCH (13:21)
[2020-07-12] MEDS ORDERED: *HR* Metoprolol 5 MG/5 ML VIAL IVP ONE (13:21)
[2020-07-12 14:50] LABS: Mean Corpuscular HGB Conc 29.6 g/dL (31.6-35.5); Mean Corpuscular Hemoglobin 25.8 pg (28.0-33.3); Mean Corpuscular Volume 87.1 fL (83.0-100.0); Mean Platelet Volume 10.8 fL (9.4-12.4); Platelet Count 192 K/mcL (140-400); Red Cell Distribution Width 16.1 % (11.5-14.5); White Blood Count 14.6 K/mcL (4.3-11.1)
[2020-07-12 15:34] LABS: Heparin anti-factor XA UFH 0.71 IU/mL (0.30-0.70)
[2020-07-12 15:35] LABS: INR 1.1; Prothrombin Time 13.2 Seconds (9.4-12.1)
[2020-07-12] MEDS: *HR* Digoxin 0.5 MG/2 ML AMPUL IVP SCH (20:59)
[2020-07-12] MEDS: Fluticasone Propionate Nasal 50 MCG/SPRAY BOTTLE NS SCH (21:39)
[2020-07-12 21:46] LABS: ABG Base Excess 13 mEq/L (-2 to 3); ABG HCO3 39 mEq/L (21-27); ABG Oxygen Saturation 85 % (95-98); ABG PCO2 57 mmHg (35-45); ABG PH 7.44 pH Units (7.32-7.45); ABG PO2 49 mmHg (85-104); ABG TCO2 41 mEq/L (20-26)
[2020-07-12 22:35] LABS: ABG Base Excess 18 mEq/L (-2 to 3); ABG HCO3 43 mEq/L (21-27); ABG Oxygen Saturation 100 % (95-98); ABG PCO2 56 mmHg (35-45); ABG PH 7.49 pH Units (7.32-7.45); ABG PO2 212 mmHg (85-104); ABG TCO2 45 mEq/L (20-26)
[2020-07-13] MEDS: Artificial Tears SOLN 15 ML BOTTLE BOTH EYES SCH ×2 (00:19→04:30)
[2020-07-13] MEDS: *HR* Metoprolol 5 MG/5 ML VIAL IVP SCH ×5 (00:19→23:21)
[2020-07-13] MEDS: *HR* Digoxin 0.5 MG/2 ML AMPUL IVP SCH (00:20)
[2020-07-13] MEDS: Piperacillin/Tazobactam 3.375 GM in 0.9 % Sodium Chloride Mini Bag 100 ML IVPB SCH ×4 (00:20→23:19)
[2020-07-13] MEDS: Insulin LISPRO 300 UNITS/3 ML VIAL SUBQ SCH ×4 (00:21→17:59)
[2020-07-13] MEDS: Insulin DETEMIR 100 UNIT/ML X5UNITS SUBQ SCH ×3 (00:21→20:50)
[2020-07-13] MEDS: Potassium Chloride 40 MEQ/200 ML BAG IVPB PRN ×2 (00:41→06:07)
[2020-07-13] MEDS: Levalbuterol Neb 0.63 MG/3 ML IH SCH ×5 (03:44→20:06)
[2020-07-13 04:51] LABS: VBG Ionized Calcium 1.18 mmol/L (1.15-1.35)
[2020-07-13 04:56] LABS: Basophils % 0.1 %; Hematocrit 27.9 % (37.5-50.1); Hemoglobin 8.5 g/dL (12.9-16.9); Immature Granulocytes % 1.5 % (0-4); Lymphocytes # 0.7 K/mcL (0.6-4.6); Mean Corpuscular HGB Conc 30.5 g/dL (31.6-35.5); Mean Corpuscular Hemoglobin 26.2 pg (28.0-33.3); Mean Corpuscular Volume 86.1 fL (83.0-100.0); Mean Platelet Volume 10.8 fL (9.4-12.4); Monocytes % 5.5 %; Neutrophils # 15.5 K/mcL (1.6-8.9); Platelet Count 195 K/mcL (140-400); Red Blood Count 3.24 M/mcL (4.19-5.50); Red Cell Distribution Width 16.1 % (11.5-14.5); Segmented Neutrophils % 88.9 %; White Blood Count 17.5 K/mcL (4.3-11.1)
[2020-07-13 05:14] LABS: BUN/Creatinine Ratio 61 (6-26); Blood Urea Nitrogen 51 mg/dL (8-23); Carbon Dioxide 39 mEq/L (23-29); Chloride 109 mEq/L (98-107); Glucose 126 mg/dL (70-105); Magnesium 2.1 mg/dL (1.6-2.6); Osmolality,Calculated 333 (280-300); Phosphorous 3.2 mg/dL (2.7-4.5); Potassium 3.8 mEq/L (3.5-5.1); Sodium 154 mEq/L (136-145); eGFR For African Americans > 60 (> 60); eGFR For Non-African Americans > 60 (> 60)
[2020-07-13] MEDS: Dexmedetomidine HCl 400 MCG/100 ML MLS IVC SCH ×2 (05:52→15:16)
[2020-07-13] MEDS: MethylPREDNISolone 40 MG/ML VIAL IVP SCH ×2 (05:56→17:38)
[2020-07-13] MEDS: Budesonide/Formoterol 160/4.5 1 PUFF INH IH SCH ×2 (07:23→20:04)
[2020-07-13] MEDS ORDERED: Lidocaine Viscous Oral Soln 15 ML SOLUTION ONE (09:04)
[2020-07-13] MEDS: Nicotine 21 MG PATCH.TD24 TD SCH (10:03)
[2020-07-13] MEDS: Furosemide 40 MG/4 ML VIAL IVP SCH (10:04)
[2020-07-13] MEDS: Aspirin 81 MG TAB.CHEW GTUBE SCH (10:04)
[2020-07-13] MEDS: Chlorhexidine Rinse 15 ML MOUTHWASH MM SCH (10:04)
[2020-07-13] MEDS: *HR* Amiodarone 200 MG TABLET PO SCH (10:04)
[2020-07-13] MEDS: Pantoprazole 40 MG VIAL IVP SCH (10:05)
[2020-07-13] MEDS ORDERED: *HR* EPINEPHrine 1 MG/10 ML SYRINGE INTRATRACH PRN (10:18)
[2020-07-13] MEDS ORDERED: *HR* Midazolam HCl 2 MG/2 ML VIAL IVP ONE (10:27)
[2020-07-13 15:04] LABS: Source of Body Fluid LLL BAL
[2020-07-13 18:41] LABS: Appearance of Body Fluid Cloudy (Clear); Volume of Body Fluid 19 mL
[2020-07-13] MEDS ORDERED: D5% in Water 1,000 ML IVC SCH (20:30)
[2020-07-13] MEDS: *HR* LORazepam 0.5 MG TABLET PO PRN (23:21)
[2020-07-14] MEDS: Levalbuterol Neb 0.63 MG/3 ML IH SCH ×7 (00:09→23:52)
[2020-07-14] MEDS: Insulin LISPRO 300 UNITS/3 ML VIAL SUBQ SCH ×5 (00:29→20:23)
[2020-07-14 04:58] LABS: Basophils % 0.1 %; Hematocrit 24.5 % (37.5-50.1); Hemoglobin 7.6 g/dL (12.9-16.9); Immature Granulocytes % 1.1 % (0-4); Lymphocytes # 0.5 K/mcL (0.6-4.6); Lymphocytes % 3.4 %; Mean Corpuscular Hemoglobin 26.9 pg (28.0-33.3); Mean Corpuscular Volume 86.6 fL (83.0-100.0); Mean Platelet Volume 10.8 fL (9.4-12.4); Monocytes # 0.8 K/mcL (0.0-1.3); Monocytes % 5.6 %; Neutrophils # 12.5 K/mcL (1.6-8.9); Platelet Count 165 K/mcL (140-400); Red Blood Count 2.83 M/mcL (4.19-5.50); Red Cell Distribution Width 16.5 % (11.5-14.5); Segmented Neutrophils % 89.8 %
[2020-07-14 05:14] LABS: BUN/Creatinine Ratio 60 (6-26); Blood Urea Nitrogen 45 mg/dL (8-23); Calcium 8.7 mg/dL (8.6-10.3); Carbon Dioxide 36 mEq/L (23-29); Chloride 110 mEq/L (98-107); Glucose 175 mg/dL (70-105); Magnesium 2.2 mg/dL (1.6-2.6); Osmolality,Calculated 330 (280-300); Potassium 3.5 mEq/L (3.5-5.1); Sodium 152 mEq/L (136-145); eGFR For African Americans > 60 (> 60); eGFR For Non-African Americans > 60 (> 60)
[2020-07-14] MEDS: MethylPREDNISolone 40 MG/ML VIAL IVP SCH (05:23)
[2020-07-14] MEDS: *HR* Metoprolol 5 MG/5 ML VIAL IVP SCH (05:24)
[2020-07-14] MEDS: Norepinephrine 4 MG/254 ML IV.SOLN IVC SCH (07:28)
[2020-07-14] MEDS: Fluticasone Propionate Nasal 50 MCG/SPRAY BOTTLE NS SCH ×2 (07:28→20:23)
[2020-07-14] MEDS: Heparin 25,000UNIT/250ML 1/2NS 25,000 UNIT/250 ML IV.SOLN IVC SCH ×2 (07:28→07:47)
[2020-07-14] MEDS: Piperacillin/Tazobactam 3.375 GM in 0.9 % Sodium Chloride Mini Bag 100 ML IVPB SCH (07:48)
[2020-07-14] MEDS: Nicotine 21 MG PATCH.TD24 TD SCH (07:49)
[2020-07-14] MEDS: Pantoprazole 40 MG VIAL IVP SCH (07:49)
[2020-07-14] MEDS: Insulin DETEMIR 100 UNIT/ML X5UNITS SUBQ SCH (07:49)
[2020-07-14] MEDS: *HR* Amiodarone 200 MG TABLET PO SCH (07:49)
[2020-07-14] MEDS: Budesonide/Formoterol 160/4.5 1 PUFF INH IH SCH ×2 (08:04→20:37)
[2020-07-14] MEDS ORDERED: Aspirin 81 MG TAB.CHEW PO SCH (09:00)
[2020-07-14] MEDS ORDERED: *HR* Metoprolol 5 MG/5 ML VIAL IVP PRN (10:00)
[2020-07-14] MEDS ORDERED: Metoprolol XL (24 HR) Succ 25 MG TAB.ER.24H PO SCH (10:00)
[2020-07-14] MEDS ORDERED: D5% in Water 1,000 ML IVC PRN (10:23)
[2020-07-14] MEDS ORDERED: *HR* Dextrose 50 % in Water (Vial) 50 ML VIAL IVP PRN (10:23)
[2020-07-14] MEDS ORDERED: Dextrose Gel 15 GM/37.5 ML TUBE PO PRN ×2 (10:23)
[2020-07-14] MEDS ORDERED: Acetaminophen 325 MG TABLET PO PRN (10:23)
[2020-07-14] MEDS ORDERED: Ondansetron ODT 4 MG TAB.RAPDIS SL PRN (10:23)
[2020-07-14] MEDS ORDERED: Sulfamethoxazole/Trimeth 800 ML in D5% in Water 500 ML IVPB SCH (11:00)
[2020-07-14] MEDS ORDERED: Pantoprazole 40 MG VIAL IVP SCH ×2 (11:45→21:00)
[2020-07-14] MEDS ORDERED: Octreotide 400 MCG in 0.9 % Sodium Chloride 100 ML IVC SCH (12:00)
[2020-07-14] MEDS: Metoprolol XL (24 HR) Succ 25 MG TAB.ER.24H PO SCH (12:04)
[2020-07-14] MEDS: Pantoprazole 40 MG in 0.9 % Sodium Chloride Mini Bag 100 ML IVC SCH (12:12)
[2020-07-14] MEDS ORDERED: *HR* Propofol 200 MG/20 ML VIAL IVP ONE (16:02)
[2020-07-14] MEDS ORDERED: Lidocaine -MPF 2% 2 ML VIAL ONE (16:03)
[2020-07-14] MEDS ORDERED: 0.9 % Sodium Chloride 250 ML ONE (16:43)
[2020-07-14] MEDS: *HR* Metoprolol 5 MG/5 ML VIAL IVP PRN (17:27)
[2020-07-14] MEDS: Furosemide 40 MG TABLET PO SCH (17:27)
[2020-07-14] MEDS ORDERED: D5% in Water 1,000 ML IVC SCH (18:30)
[2020-07-15] MEDS: *HR* Metoprolol 5 MG/5 ML VIAL IVP PRN ×3 (00:28→21:05)
[2020-07-15] MEDS: Insulin DETEMIR 100 UNIT/ML X5UNITS SUBQ SCH ×3 (03:16→21:33)
[2020-07-15 03:44] LABS: Basophils % 0.1 %; Hemoglobin 8.9 g/dL (12.9-16.9); Immature Granulocytes % 1.7 % (0-4); Lymphocytes # 1.1 K/mcL (0.6-4.6); Lymphocytes % 5.6 %; Mean Corpuscular HGB Conc 31.8 g/dL (31.6-35.5); Mean Corpuscular Hemoglobin 27.6 pg (28.0-33.3); Mean Corpuscular Volume 86.7 fL (83.0-100.0); Mean Platelet Volume 11.3 fL (9.4-12.4); Monocytes # 1.7 K/mcL (0.0-1.3); Monocytes % 8.5 %; Neutrophils # 17.1 K/mcL (1.6-8.9); Nucleated Red Blood Cells 0.1 /100 WBC (0); Platelet Count 156 K/mcL (140-400); Red Blood Count 3.23 M/mcL (4.19-5.50); Red Cell Distribution Width 16.2 % (11.5-14.5); Segmented Neutrophils % 84.1 %; White Blood Count 20.4 K/mcL (4.3-11.1)
[2020-07-15 04:00] LABS: BUN/Creatinine Ratio 45 (6-26); Blood Urea Nitrogen 37 mg/dL (8-23); Calcium 8.8 mg/dL (8.6-10.3); Carbon Dioxide 35 mEq/L (23-29); Chloride 111 mEq/L (98-107); Glucose 121 mg/dL (70-105); Magnesium 2.3 mg/dL (1.6-2.6); Osmolality,Calculated 322 (280-300); Potassium 3.7 mEq/L (3.5-5.1); Sodium 151 mEq/L (136-145); eGFR For African Americans > 60 (> 60); eGFR For Non-African Americans > 60 (> 60)
[2020-07-15] MEDS: Levalbuterol Neb 0.63 MG/3 ML IH SCH ×6 (04:13→23:25)
[2020-07-15] MEDS: Insulin LISPRO 300 UNITS/3 ML VIAL SUBQ SCH ×4 (07:37→21:06)
[2020-07-15] MEDS: Budesonide/Formoterol 160/4.5 1 PUFF INH IH SCH ×2 (07:47→20:16)
[2020-07-15] MEDS ORDERED: Metoprolol XL (24 HR) Succ 25 MG TAB.ER.24H PO SCH (09:00)
[2020-07-15] MEDS: Furosemide 40 MG TABLET PO SCH ×2 (12:09→17:06)
[2020-07-15] MEDS: Aspirin 81 MG TAB.CHEW PO SCH (12:09)
[2020-07-15] MEDS: predniSONE 20 MG TABLET PO SCH (12:16)
[2020-07-15] MEDS: Nicotine 21 MG PATCH.TD24 TD SCH (12:17)
[2020-07-15] MEDS: *HR* Amiodarone 200 MG TABLET PO SCH (12:17)
[2020-07-15] MEDS: Metoprolol XL (24 HR) Succ 25 MG TAB.ER.24H PO SCH (12:17)
[2020-07-15] MEDS: cefTRIAXone 1,000 MG in Water for inj. (sterile) 10 ML IVP SCH (12:18)
[2020-07-15] MEDS: *HR* HYDROcodone/Acet 5/325 mg TABLET PO PRN ×2 (17:10→23:34)
[2020-07-15] MEDS: Fluticasone Propionate Nasal 50 MCG/SPRAY BOTTLE NS SCH (21:06)
[2020-07-16 03:45] LABS: Basophils % 0.1 %; Eosinophils % 0.1 %; Hematocrit 27.5 % (37.5-50.1); Hemoglobin 8.4 g/dL (12.9-16.9); Immature Granulocytes % 1.6 % (0-4); Lymphocytes # 1.1 K/mcL (0.6-4.6); Lymphocytes % 6.2 %; Mean Corpuscular HGB Conc 30.5 g/dL (31.6-35.5); Mean Corpuscular Hemoglobin 26.4 pg (28.0-33.3); Mean Corpuscular Volume 86.5 fL (83.0-100.0); Mean Platelet Volume 11.3 fL (9.4-12.4); Monocytes # 1.2 K/mcL (0.0-1.3); Monocytes % 6.9 %; Neutrophils # 14.6 K/mcL (1.6-8.9); Nucleated Red Blood Cells 0.2 /100 WBC (0); Platelet Count 123 K/mcL (140-400); Red Blood Count 3.18 M/mcL (4.19-5.50); Red Cell Distribution Width 16.3 % (11.5-14.5); Segmented Neutrophils % 85.1 %; White Blood Count 17.2 K/mcL (4.3-11.1)
[2020-07-16 04:05] LABS: BUN/Creatinine Ratio 42 (6-26); Blood Urea Nitrogen 31 mg/dL (8-23); Calcium 8.3 mg/dL (8.6-10.3); Carbon Dioxide 33 mEq/L (23-29); Chloride 105 mEq/L (98-107); Glucose 132 mg/dL (70-105); Osmolality,Calculated 306 (280-300); Potassium 2.9 mEq/L (3.5-5.1); Sodium 144 mEq/L (136-145); eGFR For African Americans > 60 (> 60); eGFR For Non-African Americans > 60 (> 60)
[2020-07-16] MEDS: Levalbuterol Neb 0.63 MG/3 ML IH SCH ×6 (04:46→23:52)
[2020-07-16] MEDS: *HR* HYDROcodone/Acet 5/325 mg TABLET PO PRN ×3 (05:42→20:16)
[2020-07-16] MEDS: Insulin LISPRO 300 UNITS/3 ML VIAL SUBQ SCH ×4 (07:14→19:51)
[2020-07-16] MEDS: Nicotine 21 MG PATCH.TD24 TD SCH (07:24)
[2020-07-16] MEDS: Aspirin 81 MG TAB.CHEW PO SCH (07:24)
[2020-07-16] MEDS: predniSONE 20 MG TABLET PO SCH (07:24)
[2020-07-16] MEDS: Furosemide 40 MG TABLET PO SCH (07:24)
[2020-07-16] MEDS: *HR* Amiodarone 200 MG TABLET PO SCH (07:25)
[2020-07-16] MEDS: Metoprolol XL (24 HR) Succ 25 MG TAB.ER.24H PO SCH (07:25)
[2020-07-16] MEDS: cefTRIAXone 1,000 MG in Water for inj. (sterile) 10 ML IVP SCH (07:26)
[2020-07-16] MEDS ORDERED: Potassium Chloride 40 MEQ, Lidocaine 1% 2 ML in D5% in Water 500 ML IVPB ONE (07:46)
[2020-07-16] MEDS: Budesonide/Formoterol 160/4.5 1 PUFF INH IH SCH ×2 (07:55→20:19)
[2020-07-16] MEDS: Insulin DETEMIR 100 UNIT/ML X5UNITS SUBQ SCH ×2 (09:10→19:52)
[2020-07-16] MEDS: Ertapenem 1,000 MG in 0.9 % Sodium Chloride Mini Bag 100 ML IVPB SCH (15:30)
[2020-07-16] MEDS: Albumin 25% 25gram/100mL 25 GM/100 ML IV.SOLN IVPB SCH (16:46)
[2020-07-16] MEDS: Furosemide 40 MG/4 ML VIAL IVP SCH (16:56)
[2020-07-17] MEDS: Albumin 25% 25gram/100mL 25 GM/100 ML IV.SOLN IVPB SCH ×4 (00:51→23:39)
[2020-07-17] MEDS: Fluticasone Propionate Nasal 50 MCG/SPRAY BOTTLE NS SCH ×2 (01:36→19:36)
[2020-07-17] MEDS ORDERED: Furosemide 40 MG/4 ML VIAL IVP ONE ×2 (03:05→17:00)
[2020-07-17] MEDS ORDERED: Furosemide 40 MG/4 ML VIAL ONE (03:06)
[2020-07-17] MEDS ORDERED: Morphine Sulfate 2 MG/ML SYRINGE IVP ONE (03:06)
[2020-07-17] MEDS ORDERED: *HR* Metoprolol 5 MG/5 ML VIAL IVP ONE ×2 (03:22→03:27)
[2020-07-17] MEDS ORDERED: Potassium Chloride 40 MEQ, Lidocaine 1% 2 ML in 0.9 % Sodium Chloride 500 ML IVPB ONE (03:30)
[2020-07-17] MEDS: Levalbuterol Neb 0.63 MG/3 ML IH SCH ×6 (03:32→23:10)
[2020-07-17 03:33] LABS: ABG Base Excess 4 mEq/L (-2 to 3); ABG HCO3 31 mEq/L (21-27); ABG Oxygen Saturation 95 % (95-98); ABG PCO2 55 mmHg (35-45); ABG PH 7.36 pH Units (7.32-7.45); ABG PO2 79 mmHg (85-104); ABG TCO2 33 mEq/L (20-26); Blood Gas Pressure Support 7 cm H2O
[2020-07-17 04:29] LABS: Adenovirus Not Detected (Not Detect); Bordetella Pertussis Not Detected (Not Detect); Chlamydophila pneumoniae Not Detected (Not Detect); Coronavirus 229E Not Detected (Not Detect); Coronavirus HKU1 Not Detected (Not Detect); Coronavirus NL63 Not Detected (Not Detect); Coronavirus OC43 Not Detected (Not Detect); Human Metapneumovirus Not Detected (Not Detect); Human Rhinovirus/Enterovirus Not Detected (Not Detect); Influenza A Subtype 2009 H1 Not Detected (Not Detect); Influenza B Not Detected (Not Detect); Mycoplasma pneumoniae Not Detected (Not Detect); Parainfluenza Virus 1 Not Detected (Not Detect); Parainfluenza Virus 2 Not Detected (Not Detect); Parainfluenza Virus 3 Not Detected (Not Detect); Parainfluenza Virus 4 Not Detected (Not Detect); Respiratory Syncytial Virus Not Detected (Not Detect); SARS-CoV-2 Not Detected (Not Detect)
[2020-07-17 04:47] LABS: Hematocrit 27.5 % (37.5-50.1); Hemoglobin 8.4 g/dL (12.9-16.9); Mean Corpuscular HGB Conc 30.5 g/dL (31.6-35.5); Mean Corpuscular Hemoglobin 27.1 pg (28.0-33.3); Mean Corpuscular Volume 88.7 fL (83.0-100.0); Mean Platelet Volume 11.1 fL (9.4-12.4); Platelet Count 107 K/mcL (140-400); Red Cell Distribution Width 16.5 % (11.5-14.5)
[2020-07-17 04:52] LABS: VBG Ionized Calcium 1.15 mmol/L (1.15-1.35)
[2020-07-17 05:07] LABS: Alanine Aminotransferase 101 Units/L (7-52); Albumin 3.7 g/dL (3.5-5.7); Albumin/Globulin Ratio 1.9 (1.1-2.2); Alkaline Phosphatase 120 Units/L (34-104); Aspartate Amino Transferase 47 Units/L (13-39); BUN/Creatinine Ratio 31 (6-26); Bilirubin,Total 2.3 mg/dL (0.3-1.0); Blood Urea Nitrogen 23 mg/dL (8-23); Calcium 8.8 mg/dL (8.6-10.3); Carbon Dioxide 32 mEq/L (23-29); Chloride 102 mEq/L (98-107); Globulin 1.9 g/dL (2.4-3.5); Glucose 118 mg/dL (70-105); Osmolality,Calculated 297 (280-300); Potassium 3.5 mEq/L (3.5-5.1); Sodium 141 mEq/L (136-145); Total Protein 5.6 g/dL (6.4-8.9); eGFR For African Americans > 60 (> 60); eGFR For Non-African Americans > 60 (> 60)
[2020-07-17 05:09] LABS: Magnesium 1.9 mg/dL (1.6-2.6)
[2020-07-17 05:22] LABS: Troponin I 0.11 ng/mL (< 0.04)
[2020-07-17] MEDS ORDERED: Potassium Chloride Elixir 20 MEQ/15 ML UDC PO ONE (05:51)
[2020-07-17] MEDS: *HR* HYDROcodone/Acet 5/325 mg TABLET PO PRN ×2 (06:03→19:51)
[2020-07-17] MEDS: Budesonide/Formoterol 160/4.5 1 PUFF INH IH SCH ×2 (07:42→19:48)
[2020-07-17] MEDS: Pantoprazole 40 MG in 0.9 % Sodium Chloride Mini Bag 100 ML IVC SCH (08:21)
[2020-07-17] MEDS ORDERED: Isovue-370 500 ML BOTTLE IVP ONE (08:23)
[2020-07-17] MEDS: Insulin LISPRO 300 UNITS/3 ML VIAL SUBQ SCH ×4 (08:25→19:36)
[2020-07-17] MEDS: Furosemide 40 MG/4 ML VIAL IVP SCH ×2 (08:29→17:03)
[2020-07-17] MEDS: Aspirin 81 MG TAB.CHEW PO SCH (08:31)
[2020-07-17] MEDS: Metoprolol XL (24 HR) Succ 25 MG TAB.ER.24H PO SCH (08:31)
[2020-07-17] MEDS: predniSONE 20 MG TABLET PO SCH (08:31)
[2020-07-17] MEDS: Insulin DETEMIR 100 UNIT/ML X5UNITS SUBQ SCH ×2 (08:32→19:35)
[2020-07-17] MEDS: Nicotine 21 MG PATCH.TD24 TD SCH (08:32)
[2020-07-17] MEDS: *HR* Amiodarone 200 MG TABLET PO SCH (08:32)
[2020-07-17] MEDS: Ertapenem 1,000 MG in 0.9 % Sodium Chloride Mini Bag 100 ML IVPB SCH (15:48)
[2020-07-17 18:54] LABS: INR 1.2
[2020-07-17 19:10] LABS: Lactate Dehydrogenase 252 Units/L (140-271); Total Protein 5.5 g/dL (6.4-8.9)
[2020-07-17] MEDS: *HR* Metoprolol 5 MG/5 ML VIAL IVP PRN (19:35)
[2020-07-17] MEDS ORDERED: Metoprolol XL (24 HR) Succ 25 MG TAB.ER.24H PO SCH (21:00)
[2020-07-18] MEDS: Levalbuterol Neb 0.63 MG/3 ML IH SCH ×6 (03:29→23:30)
[2020-07-18] MEDS: *HR* HYDROcodone/Acet 5/325 mg TABLET PO PRN ×3 (03:52→23:39)
[2020-07-18 04:39] LABS: Hematocrit 22.3 % (37.5-50.1); Hemoglobin 6.9 g/dL (12.9-16.9); Immature Platelets 7.9 % (1.1-6.1); Mean Corpuscular HGB Conc 30.9 g/dL (31.6-35.5); Mean Corpuscular Hemoglobin 27.8 pg (28.0-33.3); Mean Corpuscular Volume 89.9 fL (83.0-100.0); Mean Platelet Volume 11.6 fL (9.4-12.4); Red Blood Count 2.48 M/mcL (4.19-5.50); White Blood Count 12.9 K/mcL (4.3-11.1)
[2020-07-18 04:51] LABS: Alanine Aminotransferase 63 Units/L (7-52); Albumin/Globulin Ratio 2.9 (1.1-2.2); Alkaline Phosphatase 96 Units/L (34-104); Aspartate Amino Transferase 30 Units/L (13-39); BUN/Creatinine Ratio 33 (6-26); Bilirubin,Direct 0.9 mg/dL (0.0-0.2); Bilirubin,Indirect 1.2 mg/dL (0.0-1.0); Bilirubin,Total 2.1 mg/dL (0.3-1.0); Blood Urea Nitrogen 26 mg/dL (8-23); Carbon Dioxide 31 mEq/L (23-29); Chloride 103 mEq/L (98-107); Globulin 1.4 g/dL (2.4-3.5); Glucose 80 mg/dL (70-105); Magnesium 1.8 mg/dL (1.6-2.6); Osmolality,Calculated 296 (280-300); Potassium 3.9 mEq/L (3.5-5.1); Sodium 141 mEq/L (136-145); Total Protein 5.4 g/dL (6.4-8.9); eGFR For African Americans > 60 (> 60); eGFR For Non-African Americans > 60 (> 60)
[2020-07-18] MEDS: Albumin 25% 25gram/100mL 25 GM/100 ML IV.SOLN IVPB SCH ×3 (07:50→23:40)
[2020-07-18] MEDS: Insulin LISPRO 300 UNITS/3 ML VIAL SUBQ SCH ×4 (07:50→20:16)
[2020-07-18] MEDS: Aspirin 81 MG TAB.CHEW PO SCH (07:51)
[2020-07-18] MEDS: Furosemide 40 MG/4 ML VIAL IVP SCH ×3 (07:51→20:16)
[2020-07-18] MEDS: Nicotine 21 MG PATCH.TD24 TD SCH (07:51)
[2020-07-18] MEDS: *HR* Amiodarone 200 MG TABLET PO SCH (07:51)
[2020-07-18] MEDS: Metoprolol XL (24 HR) Succ 25 MG TAB.ER.24H PO SCH ×2 (07:52→20:15)
[2020-07-18] MEDS: predniSONE 20 MG TABLET PO SCH (07:52)
[2020-07-18] MEDS: Insulin DETEMIR 100 UNIT/ML X5UNITS SUBQ SCH ×2 (07:52→20:15)
[2020-07-18] MEDS ORDERED: Metoprolol XL (24 HR) Succ 25 MG TAB.ER.24H PO SCH (09:00)
[2020-07-18] MEDS: Budesonide/Formoterol 160/4.5 1 PUFF INH IH SCH ×2 (11:14→19:36)
[2020-07-18] MEDS: lisinopriL 5 MG TABLET PO SCH (11:17)
[2020-07-18] MEDS: Spironolactone 25 MG TABLET PO SCH (11:18)
[2020-07-18] MEDS ORDERED: 0.9 % Sodium Chloride 250 ML ONE (11:25)
[2020-07-18] MEDS ORDERED: Furosemide 40 MG/4 ML VIAL IVP STA (12:08)
[2020-07-18] MEDS: Ertapenem 1,000 MG in 0.9 % Sodium Chloride Mini Bag 100 ML IVPB SCH (15:42)
[2020-07-18] MEDS ORDERED: Furosemide 40 MG/4 ML VIAL IVP ONE (16:49)
[2020-07-18 20:53] LABS: Basophils % 0.1 %; Monocytes % 3.3 %; Nucleated Red Blood Cells 0.1 /100 WBC (0)
[2020-07-18 20:55] LABS: Eosinophils % 0.1 %; Hematocrit 29.6 % (37.5-50.1); Hemoglobin 9.3 g/dL (12.9-16.9); Immature Granulocytes % 0.9 % (0-4); Immature Platelets 10.5 % (1.1-6.1); Lymphocytes # 0.4 K/mcL (0.6-4.6); Lymphocytes % 2.8 %; Mean Corpuscular HGB Conc 31.4 g/dL (31.6-35.5); Mean Corpuscular Hemoglobin 27.8 pg (28.0-33.3); Mean Corpuscular Volume 88.6 fL (83.0-100.0); Mean Platelet Volume 12.1 fL (9.4-12.4); Monocytes # 0.5 K/mcL (0.0-1.3); Red Blood Count 3.34 M/mcL (4.19-5.50); Red Cell Distribution Width 16.6 % (11.5-14.5); Segmented Neutrophils % 92.8 %; White Blood Count 14.4 K/mcL (4.3-11.1)
[2020-07-18 21:24] LABS: Neutrophils # 13.4 K/mcL (1.6-8.9); Platelet Count 76 K/mcL (140-400)
[2020-07-18 21:25] LABS: Hypochromasia Present (Not Present); Platelet Estimate Marked Decrease (Normal)
[2020-07-18] MEDS: Fluticasone Propionate Nasal 50 MCG/SPRAY BOTTLE NS SCH (23:40)
[2020-07-19] MEDS: Levalbuterol Neb 0.63 MG/3 ML IH SCH ×6 (03:22→23:15)
[2020-07-19 03:51] LABS: Basophils % 0.1 %; Eosinophils % 0.1 %; Hemoglobin 9.1 g/dL (12.9-16.9); Nucleated Red Blood Cells 0.1 /100 WBC (0)
[2020-07-19 03:53] LABS: Hematocrit 28.4 % (37.5-50.1); Immature Granulocytes % 0.8 % (0-4); Immature Platelets 8.8 % (1.1-6.1); Lymphocytes % 5.5 %; Mean Corpuscular Hemoglobin 28.4 pg (28.0-33.3); Mean Corpuscular Volume 88.8 fL (83.0-100.0); Mean Platelet Volume 12.2 fL (9.4-12.4); Monocytes # 0.9 K/mcL (0.0-1.3); Monocytes % 5.6 %; Neutrophils # 13.5 K/mcL (1.6-8.9); Red Cell Distribution Width 16.9 % (11.5-14.5); Segmented Neutrophils % 87.9 %; White Blood Count 15.4 K/mcL (4.3-11.1)
[2020-07-19 03:54] LABS: Lymphocytes # 0.9 K/mcL (0.6-4.6); Platelet Count 84 K/mcL (140-400)
[2020-07-19 04:07] LABS: BUN/Creatinine Ratio 36 (6-26); Blood Urea Nitrogen 30 mg/dL (8-23); Calcium 9.1 mg/dL (8.6-10.3); Carbon Dioxide 29 mEq/L (23-29); Chloride 102 mEq/L (98-107); Glucose 152 mg/dL (70-105); Magnesium 1.8 mg/dL (1.6-2.6); Osmolality,Calculated 299 (280-300); Potassium 3.8 mEq/L (3.5-5.1); Sodium 140 mEq/L (136-145); eGFR For African Americans > 60 (> 60); eGFR For Non-African Americans > 60 (> 60)
[2020-07-19] MEDS: Albumin 25% 25gram/100mL 25 GM/100 ML IV.SOLN IVPB SCH ×2 (07:42→16:26)
[2020-07-19] MEDS: Budesonide/Formoterol 160/4.5 1 PUFF INH IH SCH ×2 (07:42→19:52)
[2020-07-19] MEDS: Spironolactone 25 MG TABLET PO SCH (07:43)
[2020-07-19] MEDS: *HR* Amiodarone 200 MG TABLET PO SCH (07:43)
[2020-07-19] MEDS: Metoprolol XL (24 HR) Succ 25 MG TAB.ER.24H PO SCH (07:43)
[2020-07-19] MEDS: Aspirin 81 MG TAB.CHEW PO SCH (07:43)
[2020-07-19] MEDS: lisinopriL 5 MG TABLET PO SCH (07:43)
[2020-07-19] MEDS: Furosemide 40 MG/4 ML VIAL IVP SCH ×3 (07:44→20:28)
[2020-07-19] MEDS: Nicotine 21 MG PATCH.TD24 TD SCH (07:53)
[2020-07-19] MEDS: Insulin LISPRO 300 UNITS/3 ML VIAL SUBQ SCH ×4 (07:54→20:30)
[2020-07-19] MEDS ORDERED: *HR* FentaNYL (PF) 100 MCG/2 ML VIAL ONE (08:48)
[2020-07-19] MEDS ORDERED: *HR* Propofol 200 MG/20 ML VIAL IVP ONE (08:48)
[2020-07-19] MEDS ORDERED: *HR* Succinylcholine 200 MG/10 ML VIAL IVP ONE (08:50)
[2020-07-19] MEDS ORDERED: Lidocaine -MPF 2% 2 ML VIAL ONE (08:50)
[2020-07-19] MEDS ORDERED: Lidocaine -MPF 4% 5 ML AMPUL ONE (08:50)
[2020-07-19] MEDS: Insulin DETEMIR 100 UNIT/ML X5UNITS SUBQ SCH ×2 (08:59→20:28)
[2020-07-19] MEDS ORDERED: predniSONE 10 MG TABLET PO SCH (09:00)
[2020-07-19] MEDS ORDERED: Ondansetron 4 MG/2 ML VIAL ONE (09:05)
[2020-07-19] MEDS: methylPREDNISolone 125 MG/2 ML VIAL IVP SCH (11:29)
[2020-07-19] MEDS: *HR* HYDROcodone/Acet 5/325 mg TABLET PO PRN ×2 (12:28→20:28)
[2020-07-19] MEDS: Ertapenem 1,000 MG in 0.9 % Sodium Chloride Mini Bag 100 ML IVPB SCH (16:26)
[2020-07-19] MEDS ORDERED: Furosemide 40 MG TABLET PO SCH (17:00)
[2020-07-19] MEDS: Metoprolol XL (24 HR) Succ 50 MG TAB.ER.24H PO SCH ×2 (20:28→21:50)
[2020-07-19] MEDS: Fluticasone Propionate Nasal 50 MCG/SPRAY BOTTLE NS SCH (20:29)
[2020-07-20] MEDS: methylPREDNISolone 125 MG/2 ML VIAL IVP SCH ×3 (00:16→22:12)
[2020-07-20] MEDS: Albumin 25% 25gram/100mL 25 GM/100 ML IV.SOLN IVPB SCH (00:16)
[2020-07-20] MEDS ORDERED: Artificial Tears SOLN 15 ML BOTTLE BOTH EYES PRN (04:22)
[2020-07-20 04:44] LABS: Red Blood Count 3.71 M/mcL (4.19-5.50)
[2020-07-20 04:46] LABS: Hematocrit 34.9 % (37.5-50.1); Hemoglobin 10.2 g/dL (12.9-16.9); Immature Platelets 11.4 % (1.1-6.1); Mean Corpuscular HGB Conc 29.2 g/dL (31.6-35.5); Mean Corpuscular Hemoglobin 27.5 pg (28.0-33.3); Mean Corpuscular Volume 94.1 fL (83.0-100.0); Mean Platelet Volume 12.3 fL (9.4-12.4); Red Cell Distribution Width 17.8 % (11.5-14.5); White Blood Count 6.1 K/mcL (4.3-11.1)
[2020-07-20 04:47] LABS: ABG Base Excess -7 mEq/L (-2 to 3); ABG HCO3 22 mEq/L (21-27); ABG Oxygen Saturation 86 % (95-98); ABG PCO2 60 mmHg (35-45); ABG PH 7.17 pH Units (7.32-7.45); ABG PO2 65 mmHg (85-104); ABG TCO2 24 mEq/L (20-26); Blood Gas Modality ASSIST CONTROL; Blood Gas VT 500 cc
[2020-07-20] MEDS: Levalbuterol Neb 0.63 MG/3 ML IH SCH ×6 (04:49→23:34)
[2020-07-20] MEDS: FentaNYL (PF) 1,000 MCG/100 ML IV.SOLN IVC SCH ×2 (05:53→19:24)
[2020-07-20 06:13] LABS: ABG Base Excess -3 mEq/L (-2 to 3); ABG HCO3 22 mEq/L (21-27); ABG Oxygen Saturation 91 % (95-98); ABG PCO2 39 mmHg (35-45); ABG PH 7.36 pH Units (7.32-7.45); ABG PO2 64 mmHg (85-104); ABG TCO2 23 mEq/L (20-26); Blood Gas Modality ASSIST CONTROL; Blood Gas VT 450 cc
[2020-07-20] MEDS: Budesonide/Formoterol 160/4.5 1 PUFF INH IH SCH ×2 (07:21→19:31)
[2020-07-20 08:40] LABS: Alanine Aminotransferase 637 Units/L (7-52); Albumin 4.1 g/dL (3.5-5.7); Albumin/Globulin Ratio 3.4 (1.1-2.2); Alkaline Phosphatase 105 Units/L (34-104); Aspartate Amino Transferase 735 Units/L (13-39); BUN/Creatinine Ratio 40 (6-26); Bilirubin,Total 2.1 mg/dL (0.3-1.0); Blood Urea Nitrogen 44 mg/dL (8-23); Calcium 8.7 mg/dL (8.6-10.3); Carbon Dioxide 25 mEq/L (23-29); Chloride 102 mEq/L (98-107); Globulin 1.2 g/dL (2.4-3.5); Glucose 248 mg/dL (70-105); Osmolality,Calculated 311 (280-300); Potassium 4.6 mEq/L (3.5-5.1); Sodium 141 mEq/L (136-145); Total Protein 5.3 g/dL (6.4-8.9); eGFR For African Americans > 60 (> 60); eGFR For Non-African Americans > 60 (> 60)
[2020-07-20] MEDS: Midazolam HCl 50 MG/100 ML IV.SOLN IVC SCH (09:06)
[2020-07-20] MEDS ORDERED: *HR* Midazolam HCl 5 MG/5 ML VIAL IVP ONE ×2 (09:13→10:39)
[2020-07-20] MEDS: Insulin LISPRO 300 UNITS/3 ML VIAL SUBQ SCH ×4 (10:37→20:09)
[2020-07-20] MEDS: Nicotine 21 MG PATCH.TD24 TD SCH (10:37)
[2020-07-20] MEDS: Chlorhexidine Rinse 15 ML MOUTHWASH MM SCH ×2 (10:37→20:04)
[2020-07-20] MEDS: Insulin DETEMIR 100 UNIT/ML X5UNITS SUBQ SCH ×2 (10:39→20:09)
[2020-07-20] MEDS: Furosemide 40 MG/4 ML VIAL IVP SCH ×2 (10:39→20:05)
[2020-07-20] MEDS: Artificial Tears SOLN 15 ML BOTTLE BOTH EYES SCH ×4 (10:39→20:06)
[2020-07-20] MEDS: Metoprolol XL (24 HR) Succ 50 MG TAB.ER.24H PO SCH ×2 (10:40→20:08)
[2020-07-20] MEDS: Dexmedetomidine HCl 400 MCG/100 ML MLS IVC SCH ×2 (10:40→21:16)
[2020-07-20 13:16] LABS: ABG Base Excess 4 mEq/L (-2 to 3); ABG HCO3 31 mEq/L (21-27); ABG Oxygen Saturation 94 % (95-98); ABG PCO2 63 mmHg (35-45); ABG PH 7.31 pH Units (7.32-7.45); ABG PO2 78 mmHg (85-104); ABG TCO2 33 mEq/L (20-26); Blood Gas Modality ASSIST CONTROL; Blood Gas VT 450 cc
[2020-07-20 14:14] LABS: Adenovirus Not Detected (Not Detect); Coronavirus 229E Not Detected (Not Detect); Coronavirus HKU1 Not Detected (Not Detect); Coronavirus NL63 Not Detected (Not Detect); Coronavirus OC43 Not Detected (Not Detect); Human Metapneumovirus Not Detected (Not Detect); SARS-CoV-2 Not Detected (Not Detect)
[2020-07-20 14:15] LABS: Bordetella Pertussis Not Detected (Not Detect); Chlamydophila pneumoniae Not Detected (Not Detect); Human Rhinovirus/Enterovirus Not Detected (Not Detect); Influenza A Subtype 2009 H1 Not Detected (Not Detect); Influenza B Not Detected (Not Detect); Mycoplasma pneumoniae Not Detected (Not Detect); Parainfluenza Virus 1 Not Detected (Not Detect); Parainfluenza Virus 2 Not Detected (Not Detect); Parainfluenza Virus 3 Not Detected (Not Detect); Parainfluenza Virus 4 Not Detected (Not Detect); Respiratory Syncytial Virus Not Detected (Not Detect)
[2020-07-20] MEDS: Ertapenem 1,000 MG in 0.9 % Sodium Chloride Mini Bag 100 ML IVPB SCH (14:24)
[2020-07-20 15:20] LABS: Appearance of Body Fluid Slightly Hazy (Clear); Volume of Body Fluid 29 mL
[2020-07-20] MEDS: Norepinephrine 4 MG/254 ML IV.SOLN IVC SCH (16:21)
[2020-07-20] MEDS: Pantoprazole 40 MG VIAL IVP SCH (17:43)
[2020-07-20] MEDS ORDERED: *HR* Amiodarone 150 MG/3 ML VIAL IVPB ONE (17:53)
[2020-07-20] MEDS ORDERED: *HR* EPINEPHrine 1 MG/10 ML SYRINGE IVP ONE (17:53)
[2020-07-20] MEDS ORDERED: Perflutren Lipid Microsphere 1.3 ML in 0.9 % Sodium Chloride 8.7 ML IVP PRN (18:49)
[2020-07-20] MEDS: Fluticasone Propionate Nasal 50 MCG/SPRAY BOTTLE NS SCH (20:07)
[2020-07-21] MEDS: Artificial Tears SOLN 15 ML BOTTLE BOTH EYES SCH ×7 (00:18→23:46)
[2020-07-21] MEDS: Dexmedetomidine HCl 400 MCG/100 ML MLS IVC SCH ×2 (01:46→08:58)
[2020-07-21] MEDS: Levalbuterol Neb 0.63 MG/3 ML IH SCH ×6 (04:11→23:16)
[2020-07-21 04:22] LABS: ABG Base Excess 6 mEq/L (-2 to 3); ABG HCO3 32 mEq/L (21-27); ABG Oxygen Saturation 100 % (95-98); ABG PCO2 58 mmHg (35-45); ABG PH 7.35 pH Units (7.32-7.45); ABG PO2 248 mmHg (85-104); ABG TCO2 34 mEq/L (20-26); Blood Gas Modality ASSIST CONTROL; Blood Gas VT 450 cc
[2020-07-21 04:30] LABS: Basophils % 0.1 %; Hematocrit 24.5 % (37.5-50.1); Red Cell Distribution Width 17.6 % (11.5-14.5)
[2020-07-21 04:32] LABS: Hemoglobin 7.6 g/dL (12.9-16.9); Immature Platelets 9.3 % (1.1-6.1); Lymphocytes # 0.3 K/mcL (0.6-4.6); Lymphocytes % 1.8 %; Mean Corpuscular Hemoglobin 27.7 pg (28.0-33.3); Mean Corpuscular Volume 89.4 fL (83.0-100.0); Mean Platelet Volume 11.6 fL (9.4-12.4); Monocytes # 0.4 K/mcL (0.0-1.3); Neutrophils # 17.3 K/mcL (1.6-8.9); Nucleated Red Blood Cells 0.1 /100 WBC (0); Red Blood Count 2.74 M/mcL (4.19-5.50); Segmented Neutrophils % 95.1 %; White Blood Count 18.2 K/mcL (4.3-11.1)
[2020-07-21 04:39] LABS: Platelet Count 55 K/mcL (140-400)
[2020-07-21 04:49] LABS: Albumin 3.8 g/dL (3.5-5.7); Albumin/Globulin Ratio 3.2 (1.1-2.2); Bilirubin,Total 1.8 mg/dL (0.3-1.0); Calcium 8.7 mg/dL (8.6-10.3); Globulin 1.2 g/dL (2.4-3.5)
[2020-07-21] MEDS: Pantoprazole 40 MG VIAL IVP SCH ×2 (06:08→19:15)
[2020-07-21] MEDS: Budesonide/Formoterol 160/4.5 1 PUFF INH IH SCH ×2 (07:18→19:47)
[2020-07-21] MEDS: Midazolam HCl 50 MG/100 ML IV.SOLN IVC SCH (07:47)
[2020-07-21] MEDS: Cisatracurium 200 MG in 0.9 % Sodium Chloride 180 ML IVC SCH ×2 (07:47→19:14)
[2020-07-21] MEDS: Chlorhexidine Rinse 15 ML MOUTHWASH MM SCH ×2 (07:48→19:59)
[2020-07-21] MEDS: Furosemide 40 MG/4 ML VIAL IVP SCH ×2 (07:48→19:59)
[2020-07-21] MEDS: Metoprolol XL (24 HR) Succ 50 MG TAB.ER.24H PO SCH (07:48)
[2020-07-21] MEDS: Nicotine 21 MG PATCH.TD24 TD SCH (07:49)
[2020-07-21] MEDS: Insulin DETEMIR 100 UNIT/ML X5UNITS SUBQ SCH ×2 (07:53→19:59)
[2020-07-21] MEDS: Insulin LISPRO 300 UNITS/3 ML VIAL SUBQ SCH ×4 (08:01→20:01)
[2020-07-21] MEDS ORDERED: Perflutren Lipid Microsphere 1.3 ML in 0.9 % Sodium Chloride 8.7 ML IVP PRN (08:05)
[2020-07-21] MEDS: methylPREDNISolone 125 MG/2 ML VIAL IVP SCH ×2 (10:18→21:22)
[2020-07-21 10:58] LABS: INR 1.3; Prothrombin Time 14.6 Seconds (9.4-12.1)
[2020-07-21] MEDS: FentaNYL (PF) 1,000 MCG/100 ML IV.SOLN IVC SCH (16:20)
[2020-07-21] MEDS: Ertapenem 1,000 MG in 0.9 % Sodium Chloride Mini Bag 100 ML IVPB SCH (16:29)
[2020-07-21] MEDS: Norepinephrine 4 MG/254 ML IV.SOLN IVC SCH (16:44)
[2020-07-21] MEDS: Fluticasone Propionate Nasal 50 MCG/SPRAY BOTTLE NS SCH (19:59)
[2020-07-22] MEDS: Levalbuterol Neb 0.63 MG/3 ML IH SCH ×6 (03:34→23:38)
[2020-07-22] MEDS: Artificial Tears SOLN 15 ML BOTTLE BOTH EYES SCH ×6 (03:43→22:48)
[2020-07-22 04:04] LABS: Basophils % 0.1 %; Red Cell Distribution Width 18.2 % (11.5-14.5)
[2020-07-22 04:06] LABS: Hematocrit 22.2 % (37.5-50.1); Immature Granulocytes % 1.3 % (0-4); Immature Platelets 9.5 % (1.1-6.1); Lymphocytes # 0.1 K/mcL (0.6-4.6); Lymphocytes % 0.4 %; Mean Corpuscular HGB Conc 31.5 g/dL (31.6-35.5); Mean Corpuscular Hemoglobin 27.8 pg (28.0-33.3); Mean Corpuscular Volume 88.1 fL (83.0-100.0); Monocytes # 0.3 K/mcL (0.0-1.3); Monocytes % 1.8 %; Nucleated Red Blood Cells 0.2 /100 WBC (0); Red Blood Count 2.52 M/mcL (4.19-5.50); Segmented Neutrophils % 96.4 %; White Blood Count 18.7 K/mcL (4.3-11.1)
[2020-07-22 04:16] LABS: Platelet Count 57 K/mcL (140-400)
[2020-07-22 04:19] LABS: Albumin 3.5 g/dL (3.5-5.7); Albumin/Globulin Ratio 2.5 (1.1-2.2); Bilirubin,Total 1.6 mg/dL (0.3-1.0); Calcium 8.4 mg/dL (8.6-10.3); Globulin 1.4 g/dL (2.4-3.5); Potassium 4.1 mEq/L (3.5-5.1); Total Protein 4.9 g/dL (6.4-8.9)
[2020-07-22 04:30] LABS: Anisocytosis 1+ (Not Present); Burr Cells 2+ (Not Present); Platelet Estimate Decreased (Normal); Poikilocytosis 2+ (Not Present)
[2020-07-22 04:31] LABS: Polychromasia 1+ (Not Present); Schistocytes 1+ (Not Present)
[2020-07-22 04:47] LABS: ABG Base Excess 5 mEq/L (-2 to 3); ABG HCO3 31 mEq/L (21-27); ABG Oxygen Saturation 98 % (95-98); ABG PCO2 56 mmHg (35-45); ABG PH 7.36 pH Units (7.32-7.45); ABG PO2 119 mmHg (85-104); ABG TCO2 33 mEq/L (20-26); Blood Gas VT 450 cc
[2020-07-22] MEDS: Midazolam HCl 50 MG/100 ML IV.SOLN IVC SCH (05:02)
[2020-07-22] MEDS: Pantoprazole 40 MG VIAL IVP SCH ×2 (05:26→17:33)
[2020-07-22] MEDS: Dexmedetomidine HCl 400 MCG/100 ML MLS IVC SCH ×3 (06:24→22:09)
[2020-07-22] MEDS: Budesonide/Formoterol 160/4.5 1 PUFF INH IH SCH ×2 (07:21→19:42)
[2020-07-22] MEDS: Chlorhexidine Rinse 15 ML MOUTHWASH MM SCH ×2 (08:47→19:38)
[2020-07-22] MEDS: Insulin DETEMIR 100 UNIT/ML X5UNITS SUBQ SCH ×2 (08:47→19:41)
[2020-07-22] MEDS: Nicotine 21 MG PATCH.TD24 TD SCH (08:47)
[2020-07-22] MEDS: Insulin LISPRO 300 UNITS/3 ML VIAL SUBQ SCH ×4 (08:48→19:41)
[2020-07-22] MEDS: Furosemide 40 MG/4 ML VIAL IVP SCH (08:48)
[2020-07-22] MEDS: Albumin 25% 25gram/100mL 25 GM/100 ML IV.SOLN IVPB SCH (09:52)
[2020-07-22 10:21] LABS: Influenza A PCR Body Fluid NOT DETECTED; Influenza B PCR Body Fluid NOT DETECTED; RVP Body Fluid Source BAL
[2020-07-22 10:22] LABS: Influenza A PCR Body Fluid NOT DETECTED; Influenza B PCR Body Fluid NOT DETECTED; RVP Body Fluid Source BAL
[2020-07-22] MEDS: methylPREDNISolone 125 MG/2 ML VIAL IVP SCH ×2 (10:54→21:43)
[2020-07-22 11:47] LABS: RSV PCR Body Fluid NOT DETECTED
[2020-07-22 11:48] LABS: RSV PCR Body Fluid NOT DETECTED
[2020-07-22] MEDS ORDERED: 0.9 % Sodium Chloride 250 ML ONE (13:25)
[2020-07-22] MEDS: Ertapenem 1,000 MG in 0.9 % Sodium Chloride Mini Bag 100 ML IVPB SCH (14:19)
[2020-07-22] MEDS: Norepinephrine 4 MG/254 ML IV.SOLN IVC SCH (16:06)
[2020-07-22] MEDS: Cisatracurium 200 MG in 0.9 % Sodium Chloride 180 ML IVC SCH (17:30)
[2020-07-22] MEDS: Fluticasone Propionate Nasal 50 MCG/SPRAY BOTTLE NS SCH (19:38)
[2020-07-23 01:36] LABS: Albumin 3.4 g/dL (3.5-5.7); Albumin/Globulin Ratio 2.4 (1.1-2.2); Basophils % 0.1 %; Bilirubin,Total 1.8 mg/dL (0.3-1.0); Calcium 8.3 mg/dL (8.6-10.3); Globulin 1.4 g/dL (2.4-3.5); Potassium 4.5 mEq/L (3.5-5.1); Red Cell Distribution Width 17.7 % (11.5-14.5); Total Protein 4.8 g/dL (6.4-8.9)
[2020-07-23 01:38] LABS: Hematocrit 24.9 % (37.5-50.1); Immature Granulocytes % 0.9 % (0-4); Immature Platelets 6.5 % (1.1-6.1); Lymphocytes # 0.1 K/mcL (0.6-4.6); Lymphocytes % 0.5 %; Mean Corpuscular HGB Conc 32.1 g/dL (31.6-35.5); Mean Corpuscular Hemoglobin 28.6 pg (28.0-33.3); Mean Corpuscular Volume 88.9 fL (83.0-100.0); Monocytes # 0.2 K/mcL (0.0-1.3); Monocytes % 1.7 %; Segmented Neutrophils % 96.8 %; White Blood Count 13.2 K/mcL (4.3-11.1)
[2020-07-23 01:50] LABS: Neutrophils # 12.8 K/mcL (1.6-8.9); Platelet Count 58 K/mcL (140-400)
[2020-07-23 02:47] LABS: Platelet Estimate Decreased (Normal)
[2020-07-23] MEDS: Artificial Tears SOLN 15 ML BOTTLE BOTH EYES SCH ×6 (03:09→23:43)
[2020-07-23] MEDS: FentaNYL (PF) 1,000 MCG/100 ML IV.SOLN IVC SCH (03:09)
[2020-07-23] MEDS: Midazolam HCl 50 MG/100 ML IV.SOLN IVC SCH (03:10)
[2020-07-23] MEDS: Levalbuterol Neb 0.63 MG/3 ML IH SCH ×6 (03:11→23:41)
[2020-07-23] MEDS ORDERED: Insulin DETEMIR 100 UNIT/ML X5UNITS SUBQ ONE (03:12)
[2020-07-23] MEDS: Insulin LISPRO 300 UNITS/3 ML VIAL SUBQ SCH ×6 (03:35→23:44)
[2020-07-23 04:38] LABS: ABG Base Excess 3 mEq/L (-2 to 3); ABG HCO3 29 mEq/L (21-27); ABG Oxygen Saturation 96 % (95-98); ABG PCO2 47 mmHg (35-45); ABG PH 7.39 pH Units (7.32-7.45); ABG PO2 83 mmHg (85-104); ABG TCO2 30 mEq/L (20-26); Blood Gas Modality CPAP/PS; Blood Gas Pressure Support 10 cm H2O
[2020-07-23] MEDS: Pantoprazole 40 MG VIAL IVP SCH ×2 (05:24→08:26)
[2020-07-23] MEDS: Dexmedetomidine HCl 400 MCG/100 ML MLS IVC SCH ×2 (05:36→14:42)
[2020-07-23 06:05] LABS: Influenza A PCR Body Fluid INVALID; Influenza B PCR Body Fluid INVALID
[2020-07-23] MEDS: Budesonide/Formoterol 160/4.5 1 PUFF INH IH SCH ×2 (07:30→20:18)
[2020-07-23] MEDS: Nicotine 21 MG PATCH.TD24 TD SCH (08:26)
[2020-07-23] MEDS: Chlorhexidine Rinse 15 ML MOUTHWASH MM SCH ×2 (08:26→19:40)
[2020-07-23] MEDS: Insulin DETEMIR 100 UNIT/ML X5UNITS SUBQ SCH ×2 (08:49→21:09)
[2020-07-23] MEDS: Ertapenem 1,000 MG in 0.9 % Sodium Chloride Mini Bag 100 ML IVPB SCH (14:33)
[2020-07-23] MEDS: Norepinephrine 4 MG/254 ML IV.SOLN IVC SCH (15:38)
[2020-07-23] MEDS: *HR* Metoprolol 5 MG/5 ML VIAL IVP SCH ×2 (17:16→23:21)
[2020-07-23] MEDS: methylPREDNISolone 125 MG/2 ML VIAL IVP SCH (17:17)
[2020-07-23 18:25] LABS: ANA IgG by ELISA NONE DETECTED (None Detected)
[2020-07-23 18:32] LABS: Serine Protease-3 Antibody 1 AU/mL (0-19)
[2020-07-23 18:49] LABS: RSV PCR Body Fluid INVALID; RVP Body Fluid Source NOT PROVIDED
[2020-07-23] MEDS: Fluticasone Propionate Nasal 50 MCG/SPRAY BOTTLE NS SCH (19:43)
[2020-07-23] MEDS: Furosemide 40 MG/4 ML VIAL IVP SCH (21:09)
[2020-07-24] MEDS: Dexmedetomidine HCl 400 MCG/100 ML MLS IVC SCH ×2 (01:08→12:10)
[2020-07-24] MEDS: Levalbuterol Neb 0.63 MG/3 ML IH SCH ×4 (03:10→15:24)
[2020-07-24] MEDS: Insulin LISPRO 300 UNITS/3 ML VIAL SUBQ SCH ×2 (03:36→08:04)
[2020-07-24] MEDS: FentaNYL (PF) 1,000 MCG/100 ML IV.SOLN IVC SCH (03:36)
[2020-07-24] MEDS: Artificial Tears SOLN 15 ML BOTTLE BOTH EYES SCH ×2 (03:36→08:19)
[2020-07-24] MEDS: Midazolam HCl 50 MG/100 ML IV.SOLN IVC SCH (03:37)
[2020-07-24 03:38] LABS: Hematocrit 26.8 % (37.5-50.1); Hemoglobin 8.4 g/dL (12.9-16.9); Immature Granulocytes % 0.6 % (0-4); Immature Platelets 7.7 % (1.1-6.1); Lymphocytes # 0.1 K/mcL (0.6-4.6); Lymphocytes % 0.6 %; Mean Corpuscular HGB Conc 31.3 g/dL (31.6-35.5); Mean Corpuscular Hemoglobin 27.8 pg (28.0-33.3); Mean Corpuscular Volume 88.7 fL (83.0-100.0); Mean Platelet Volume 11.5 fL (9.4-12.4); Monocytes # 0.3 K/mcL (0.0-1.3); Monocytes % 1.6 %; Red Blood Count 3.02 M/mcL (4.19-5.50); Red Cell Distribution Width 18.4 % (11.5-14.5); Segmented Neutrophils % 97.2 %; White Blood Count 16.1 K/mcL (4.3-11.1)
[2020-07-24 03:40] LABS: Neutrophils # 15.7 K/mcL (1.6-8.9); Platelet Count 55 K/mcL (140-400)
[2020-07-24 03:52] LABS: Albumin 3.2 g/dL (3.5-5.7); Calcium 8.8 mg/dL (8.6-10.3); Globulin 1.6 g/dL (2.4-3.5); Potassium 4.3 mEq/L (3.5-5.1); Total Protein 4.8 g/dL (6.4-8.9)
[2020-07-24 04:10] LABS: Anisocytosis 1+ (Not Present); Platelet Estimate Slight Decrease (Normal)
[2020-07-24 04:11] LABS: Poikilocytosis 1+ (Not Present)
[2020-07-24] MEDS: methylPREDNISolone 125 MG/2 ML VIAL IVP SCH (05:29)
[2020-07-24] MEDS: *HR* Metoprolol 5 MG/5 ML VIAL IVP SCH ×2 (05:29→11:55)
[2020-07-24] MEDS: Budesonide/Formoterol 160/4.5 1 PUFF INH IH SCH (07:46)
[2020-07-24] MEDS: Insulin DETEMIR 100 UNIT/ML X5UNITS SUBQ SCH (08:04)
[2020-07-24] MEDS: Nicotine 21 MG PATCH.TD24 TD SCH (08:18)
[2020-07-24] MEDS: Chlorhexidine Rinse 15 ML MOUTHWASH MM SCH (08:18)
[2020-07-24] MEDS: Furosemide 40 MG/4 ML VIAL IVP SCH (08:18)
[2020-07-24] MEDS: Pantoprazole 40 MG VIAL IVP SCH (08:19)
[2020-07-24] MEDS ORDERED: Insulin LISPRO 300 UNITS/3 ML VIAL SUBQ SCH (08:46)
[2020-07-24 12:31] LABS: HSV Source BAL
[2020-07-24 13:58] LABS: Sodium, Urine 33.4 mEq/L
[2020-07-24] MEDS ORDERED: Morphine Sulfate 2 MG/ML SYRINGE ONE (14:24)
[2020-07-24] MEDS ORDERED: Morphine Sulfate 2 MG/ML SYRINGE IVP ONE (14:30)
[2020-07-24 14:40] VITALS: BP 133/72
[2020-07-24] MEDS ORDERED: Insulin DETEMIR 100 UNIT/ML X5UNITS SUBQ SCH (21:00)
[2020-07-25] MEDS ORDERED: Furosemide 40 MG/4 ML VIAL IVP SCH (09:00)
== END 2020-07-24 14:28 | disposition expired | DRG 870 ==
LOC: 2NNU → SUATTDRO 07-02 18:35 → ICNU 07-09 15:05 → 2ANU 07-14 19:22 → ICNU 07-17 05:23 → 2NNU 07-19 23:40 → ICNU 07-20 04:52
PROVIDERS: ADMIT Student in an Organized Health Care Education/Training Program; ATTEND Family Medicine
PROC: ENDOEBX (2020-07-14 15:00)